=== PATIENT | male | born 1960 | race African-American/Black ===

== ENCOUNTER 2020-06-06 22:04 | Inpatient (IN) | payer OTHER ==
--- NOTE | 2020-06-06 22:19 | ED ---
Medical Clearance HPI - General Chief complaint: Urogenital Stated complaint: PD med clearance Time Seen by Provider: 06/06/20 22:14 Source: patient, police, EMS, RN notes reviewed, old records reviewed Mode of arrival: EMS - History of Present Illness Initial comments: This is a 59-year-old male presenting with PD for medical clearance for intermediate. Patient coming to the ER complaining of abdominal pain significant for swollen scrotum which started today while having a bowel movement. Mild nausea no vomiting patient states he is unable to PE patient denies medical history denies surgical history MD Complaint: medical clearance requested (Medical clearance tonight) -: unknown Reason for Medical Clearance: medical condition (Significant hernia) Place: home Alleged Intoxication: No Compliant with Home Medications: No Traumatic Symptoms: denies traumatic injury Associated Symptoms: other (Abdominal pain) Treatments Prior to Arrival: none Allergies/Adverse reactions: Allergies Allergy/AdvReac Type Severity Reaction Status Date / Time No Known Allergies Allergy Verified 06/06/20 22:30 Review of Systems ROS Statement: Those systems with pertinent positive or pertinent negative responses have been documented in the HPI. ROS Other: All systems not noted in ROS Statement are negative. Past Medical History Past Medical History: No Reported History History of Any Multi-Drug Resistant Organisms: None Reported Past Surgical History: No Surgical Hx Reported Past Psychological History: No Psychological Hx Reported Smoking Status: Former smoker Past Alcohol Use History: None Reported Past Drug Use History: None Reported General Exam - General Exam Comments Initial Comments: Significant hernia in the scrotum, urinary retention Limitations: no limitations General appearance: alert, in no apparent distress Head exam: Present: atraumatic, normocephalic, normal inspection Eye exam: Present: normal appearance, PERRL, EOMI. Absent: scleral icterus, conjunctival injection, periorbital swelling ENT exam: Present: normal exam, mucous membranes moist Neck exam: Present: normal inspection. Absent: tenderness, meningismus, lymphadenopathy Respiratory exam: Present: normal lung sounds bilaterally. Absent: respiratory distress, wheezes, rales, rhonchi, stridor Cardiovascular Exam: Present: regular rate, normal rhythm, normal heart sounds. Absent: systolic murmur, diastolic murmur, rubs, gallop, clicks GI/Abdominal exam: Present: soft, normal bowel sounds. Absent: distended, tenderness, guarding, rebound, rigid Extremities exam: Present: normal inspection, full ROM, normal capillary refill. Absent: tenderness, pedal edema, joint swelling, calf tenderness Back exam: Present: normal inspection Neurological exam: Present: alert, oriented X3, CN II-XII intact Psychiatric exam: Present: normal affect, normal mood Skin exam: Present: warm, dry, intact, normal color. Absent: rash Course Vital Signs 06/06/20 22:14 Temperature 98.5 F Pulse Rate 89 Respiratory 18 Rate Blood Pressure 146/98 O2 Sat by Pulse 98 Oximetry - Reevaluation(s) Reevaluation #1: 06/07/20 00:00 Medical records reviewed 06/07/20 00:00 Patient is not clear for intermediate clearance will need admission Reevaluation #2: 06/07/20 00:00 Patient has catheter placed with greater than 500 mL out Reevaluation #3: 06/07/20 00:36 Patient symptoms are improved Reevaluation #4: 06/07/20 00:36 Spoke patient regarding findings, questions answered - Consultations Consultation #1: Spoke with Agnes Agrees to admit patient Medical Decision Making - Medical Decision Making 59 male DF for evaluation significant urinary retention secondary to inguinal hernia patient be admitted for surgical evaluation and treatment - Lab Data Result diagrams: 06/06/20 23:20 06/06/20 23:20 Lab Results 06/06/20 06/06/20 06/06/20 Range/Units 23:20 23:20 23:20 WBC 6.8 (3.8-10.6) k/uL RBC 4.12 L (4.30-5.90) m/uL Hgb 12.0 L (13.0-17.5) gm/dL Hct 37.6 L (39.0-53.0) % MCV 91.2 (80.0-100.0) fL MCH 29.1 (25.0-35.0) pg MCHC 31.9 (31.0-37.0) g/dL RDW 15.2 (11.5-15.5) % Plt Count 260 (150-450) k/uL Neutrophils % 80 % Lymphocytes % 13 % Monocytes % 3 % Eosinophils % 2 % Basophils % 1 % Neutrophils # 5.4 (1.3-7.7) k/uL Lymphocytes # 0.9 L (1.0-4.8) k/uL Monocytes # 0.2 (0-1.0) k/uL Eosinophils # 0.2 (0-0.7) k/uL Basophils # 0.0 (0-0.2) k/uL PT 9.7 (9.0-12.0) sec INR 0.9 (<1.2) APTT 21.7 L (22.0-30.0) sec Sodium (137-145) mmol/L Potassium (3.5-5.1) mmol/L Chloride (98-107) mmol/L Carbon Dioxide (22-30) mmol/L Anion Gap mmol/L BUN (9-20) mg/dL Creatinine (0.66-1.25) mg/dL Est GFR (CKD-EPI)AfAm (>60 ml/min/1.73 sqM) Est GFR (CKD-EPI)NonAf (>60 ml/min/1.73 sqM) Glucose (74-99) mg/dL Plasma Lactic Acid Carlos (0.7-2.0) mmol/L Calcium (8.4-10.2) mg/dL Phosphorus (2.5-4.5) mg/dL Magnesium (1.6-2.3) mg/dL Total Bilirubin (0.2-1.3) mg/dL AST (17-59) U/L ALT (4-49) U/L Alkaline Phosphatase (38-126) U/L Creatine Kinase (55-170) U/L Total Protein (6.3-8.2) g/dL Albumin (3.5-5.0) g/dL Amylase (30-110) U/L Lipase (23-300) U/L Urine Color Light Yellow Urine Appearance Clear (Clear) Urine pH 7.5 (5.0-8.0) Ur Specific [place] 1.015 (1.001-1.035) Urine Protein Negative (Negative) Urine Glucose (UA) Negative (Negative) Urine Ketones Negative (Negative) Urine Blood Negative (Negative) Urine Nitrite Negative (Negative) Urine Bilirubin Negative (Negative) Urine Urobilinogen <2.0 (<2.0) mg/dL Ur Leukocyte Esterase Negative (Negative) Serum Alcohol mg/dL 06/06/20 06/06/20 Range/Units 23:20 23:20 WBC (3.8-10.6) k/uL RBC (4.30-5.90) m/uL Hgb (13.0-17.5) gm/dL Hct (39.0-53.0) % MCV (80.0-100.0) fL MCH (25.0-35.0) pg MCHC (31.0-37.0) g/dL RDW (11.5-15.5) % Plt Count (150-450) k/uL Neutrophils % % Lymphocytes % % Monocytes % % Eosinophils % % Basophils % % Neutrophils # (1.3-7.7) k/uL Lymphocytes # (1.0-4.8) k/uL Monocytes # (0-1.0) k/uL Eosinophils # (0-0.7) k/uL Basophils # (0-0.2) k/uL PT (9.0-12.0) sec INR (<1.2) APTT (22.0-30.0) sec Sodium 136 L (137-145) mmol/L Potassium 4.4 (3.5-5.1) mmol/L Chloride 108 H (98-107) mmol/L Carbon Dioxide 26 (22-30) mmol/L Anion Gap 2 mmol/L BUN 20 (9-20) mg/dL Creatinine 0.72 (0.66-1.25) mg/dL Est GFR (CKD-EPI)AfAm >90 (>60 ml/min/1.73 sqM) Est GFR (CKD-EPI)NonAf >90 (>60 ml/min/1.73 sqM) Glucose 102 H (74-99) mg/dL Plasma Lactic Acid Carlos 0.8 (0.7-2.0) mmol/L Calcium 9.0 (8.4-10.2) mg/dL Phosphorus 3.5 (2.5-4.5) mg/dL Magnesium 2.2 (1.6-2.3) mg/dL Total Bilirubin 0.2 (0.2-1.3) mg/dL AST 30 (17-59) U/L ALT 24 (4-49) U/L Alkaline Phosphatase 63 (38-126) U/L Creatine Kinase 247 H (55-170) U/L Total Protein 6.5 (6.3-8.2) g/dL Albumin 3.6 (3.5-5.0) g/dL Amylase 56 (30-110) U/L Lipase 163 (23-300) U/L Urine Color Urine Appearance (Clear) Urine pH (5.0-8.0) Ur Specific [place] (1.001-1.035) Urine Protein (Negative) Urine Glucose (UA) (Negative) Urine Ketones (Negative) Urine Blood (Negative) Urine Nitrite (Negative) Urine Bilirubin (Negative) Urine Urobilinogen (<2.0) mg/dL Ur Leukocyte Esterase (Negative) Serum Alcohol <10 mg/dL - Radiology Data Radiology results: report reviewed (CT pelvis show significant hernia), image reviewed Critical Care Time Critical Care Time: Yes Total Critical Care Time: 31 Disposition Clinical Impression: Abdominal pain, Hernia, Urinary retention, Incarcerated inguinal hernia Disposition: ADMITTED IP TO THIS [facility] Condition: Fair Is patient prescribed a controlled substance at d/c from ED?: No
[2020-06-06] MEDS ORDERED: SODIUM CHLORIDE 0.9% 1,000 ML IV STA (23:08)
[2020-06-06 23:49] LABS: Basophils % (A) 1 %; Eosinophils # (A) 0.2 k/uL (0-0.7); Eosinophils % (A) 2 %; HCT 37.6 % (39.0-53.0); Lymphocytes # (A) 0.9 k/uL (1.0-4.8); Lymphocytes % (A) 13 %; MCH 29.1 pg (25.0-35.0); MCHC 31.9 g/dL (31.0-37.0); MCV 91.2 fL (80.0-100.0); Mean Platelet Volume 6.7; Monocytes # (A) 0.2 k/uL (0-1.0); Monocytes % (A) 3 %; Neutrophils # (A) 5.4 k/uL (1.3-7.7); Neutrophils % (A) 80 %; Platelet Count 260 k/uL (150-450); RBC 4.12 m/uL (4.30-5.90); RDW 15.2 % (11.5-15.5); WBC 6.8 k/uL (3.8-10.6)
[2020-06-06 23:50] LABS: Appearance,Urine Clear (Clear); Bilirubin,Urine Negative (Negative); Blood,Urine Negative (Negative); Color,Urine Light Yellow; Glucose,Urine (UA) Negative (Negative); Ketones,Urine Negative (Negative); Leukocyte Esterase,Urine Negative (Negative); Nitrite,Urine Negative (Negative); PH, Urine 7.5 (5.0-8.0); Protein,Urine Negative (Negative); Specific Gravity,Urine 1.015 (1.001-1.035); Urobilinogen,Urine <2.0 mg/dL (<2.0)
[2020-06-07 00:01] LABS: ALT 24 U/L (4-49); AST 30 U/L (17-59); African American GFR (CKD) >90 (>60 ml/min/1.73 sqM); Albumin 3.6 g/dL (3.5-5.0); Alcohol <10 mg/dL; Alkaline Phosphatase 63 U/L (38-126); Amylase 56 U/L (30-110); Anion Gap 2 mmol/L; Blood Urea Nitrogen 20 mg/dL (9-20); Carbon Dioxide 26 mmol/L (22-30); Chloride 108 mmol/L (98-107); Creatine Kinase 247 U/L (55-170); Glucose 102 mg/dL (74-99); Magnesium 2.2 mg/dL (1.6-2.3); Non-African American GFR(CKD) >90 (>60 ml/min/1.73 sqM); Phosphorus 3.5 mg/dL (2.5-4.5); Potassium 4.4 mmol/L (3.5-5.1); Sodium 136 mmol/L (137-145); Total Bilirubin 0.2 mg/dL (0.2-1.3); Total Protein 6.5 g/dL (6.3-8.2)
[2020-06-07 00:08] LABS: INR 0.9 (<1.2); Prothrombin Time 9.7 sec (9.0-12.0)
[2020-06-07 00:10] LABS: Partial Thromboplastin Time 21.7 sec (22.0-30.0)
[2020-06-07] MEDS ORDERED: SODIUM CHLORIDE 0.9% 1,000 ML IV ONE (00:34)
--- NOTE | 2020-06-07 00:54 | CT ---
EXAMINATION TYPE: CT abdomen pelvis w con DATE OF EXAM: 06/07/2020 COMPARISON: None HISTORY: Abd Pain CT DLP: 702.40 mGycm Automated exposure control for dose reduction was used. CONTRAST: Performed with IV Contrast, patient injected with 100 mL of Isovue 300. There is mild subsegmental atelectasis at the lung bases. Heart size is normal. There is no pericardi al effusion. There is no pleural effusion. Liver spleen stomach pancreas gallbladder appear normal. Bile ducts are not dilated. Gallbladder is c ontracted. There is no adrenal mass. Kidneys show satisfactory contrast opacification. There is no hydronephrosi s. There is a 1 cm cortical cyst anterior left kidney. There is no retroperitoneal adenopathy. There is large left side scrotal hernia that contains loops of bowel. There is incarceration. There is Fole y catheter in the urinary bladder. Bladder is empty. There is no ascites. There is no free air. There is no mesenteric edema. There are some mildly distended gas and fluid-filled small bowel loops in the mid abdomen. Small bowel is not d ilated. Small bowel measures up to 2 cm. I do not see evidence for bowel obstruction. The lumbar vertebra have normal alignment. There is narrowing at L5-S1 disc with posterior calcified disc herniation. There is no lumbar compression fracture. The bony pelvis is intact. The hip joints a re intact. IMPRESSION: Incarcerated large left scrotal hernia containing multiple loops of bowel. I do not see evidence for mechanical bowel obstruction.
[2020-06-07] MEDS ORDERED: MORPHINE SULFATE 2 MG/ML SYRINGE IVP PRN (10:25)
[2020-06-07] MEDS ORDERED: ONDANSETRON 4 MG/2 ML VIAL IVP PRN (10:25)
[2020-06-07] MEDS ORDERED: ACETAMINOPHEN TAB 325 MG TAB PO PRN (10:25)
--- NOTE | 2020-06-07 10:32 | P.CONS ---
History of Present Illness - Reason for Consult Consult date: 06/07/20 Medical management - Chief Complaint Lower abdominal pain - History of Present Illness This is a 59-year-old male with no significant past medical history who presented to the emergency room with scrotal pain and swelling. Her ER note patient was brought in by police for medical clearance for usp. There is no office or present in the room. Patient informing he was doing fairly well up until yesterday when he was trying to have a bowel movement and was straining and suddenly he felt a ''pop'' and noted significant swelling in his left groin/scrotal. Patient said the pain as being severe and rated as 10 out of 10. He denies any nausea or vomiting. He denies any history of prior hernia. He was evaluated in the emergency room and currently placed on observation awaiting surgery evaluation. I was asked to see him for medical management. Patient denies any known medical problems. He denies smoking, alcohol, or illicit drug use. He is complaining of a headache and pain in the left groin area. No other complaints otherwise. Review of Systems Review of system: 14 points review of systems were obtained and were negative except to what were mentioned in the HPI. Past Medical History Past Medical History: No Reported History History of Any Multi-Drug Resistant Organisms: None Reported Past Surgical History: No Surgical Hx Reported Past Psychological History: No Psychological Hx Reported Smoking Status: Former smoker Past Alcohol Use History: None Reported Past Drug Use History: None Reported Medications and Allergies Home Medications Medication Instructions Recorded Confirmed Type No Known Home Medications 06/07/20 06/07/20 History Allergies Allergy/AdvReac Type Severity Reaction Status Date / Time No Known Allergies Allergy Verified 06/07/20 09:45 Physical Exam Vitals: Vital Signs Temp Pulse Pulse Resp BP BP Pulse Ox 06/07/20 07:51 98.2 F 89 16 166/102 98 06/07/20 02:10 98.4 F 81 18 157/100 100 06/06/20 22:14 98.5 F 89 18 146/98 98 Intake and Output 06/06/20 06/07/20 06/07/20 22:59 06:59 14:59 Output Total 1600 900 Balance -1600 -900 Output: Urine 1600 900 Other: Voiding Method Toilet Indwelling Catheter Indwelling Catheter Weight 67.132 kg 67.132 kg General: The patient is awake and alert, in no distress Eye: there is normal conjunctiva bilaterally. Neck: The neck is supple, there is no JVD. Cardiovascular: Normal S1-S2, no S3-S4, no murmurs. Respiratory: Lungs clear to auscultation bilaterally Gastrointestinal: Abdomen is soft, nontender Musculoskeletal: There is no pedal edema. Neurological:. Speech is normal. Skin: Skin is warm and dry Genitourinary, there is evidence of nonreducible left inguinal/scrotal hernia with tenderness to palpation. Bills catheter in place. Results CBC & Chem 7: 06/06/20 23:20 06/06/20 23:20 Labs: Abnormal Lab Results - Last 24 Hours (Table) 06/06/20 06/06/20 06/06/20 Range/Units 23:20 23:20 23:20 RBC 4.12 L (4.30-5.90) m/uL Hgb 12.0 L (13.0-17.5) gm/dL Hct 37.6 L (39.0-53.0) % Lymphocytes # 0.9 L (1.0-4.8) k/uL APTT 21.7 L (22.0-30.0) sec Sodium 136 L (137-145) mmol/L Chloride 108 H (98-107) mmol/L Glucose 102 H (74-99) mg/dL Creatine Kinase 247 H (55-170) U/L Assessment and Plan Assessment: 1. Incarcerated left inguinal/scrotal hernia, awaiting general surgery and urology evaluation. Pain controlled with IV morphine as needed. 2. Obstructive uropathy, secondary to above. Bills catheter in place. 3. DVT prophylaxis with subcu heparin 4. Mild headache, Tylenol as needed Thank you very much for the consultation. We will continue to follow up on the patient closely with you.
[2020-06-07] MEDS ORDERED: SUMAtriptan succinate 6 MG/0.5 ML VIAL SQ STA (13:34)
--- NOTE | 2020-06-07 13:34 | P.GSHP ---
History of Present Illness H&P Date: 06/07/20 CHIEF COMPLAINT: Abdominal pain HISTORY OF PRESENT ILLNESS: The patient is a 59 year old male who comes in with pre-existing history of bilateral inguinal hernias. His right inguinal hernia was repaired many years ago. He reports intermittent reduction of his left inguinal hernia in the last 6 months. He comes in after trying to strain to have a bowel movement yesterday then he noticed a bulge along the left groin that was tender. He denies any passage of flatus today. He came in with urinary retention with hematuria. He reports not feeling completely empty as he voids in the past. He drinks coffee daily and reports a headache this morning. He also complains of chest pain. "The pain went from my belly to my chest, now my head really hurts!" No reports of nausea or vomiting. He reports thirst and hunger. He is admitted for urinary retention, hematuria, incarcerated left inguinal hernia, with symptoms of obstruction. PAST MEDICAL HISTORY: See list and reviewed PAST SURGICAL HISTORY: See list and reviewed MEDICATIONS: See list and reviewed ALLERGIES: See list and reviewed SOCIAL HISTORY: See list and reviewed FAMILY HISTORY: See list and reviewed REVIEW OF ORGAN SYSTEMS: CONSTITUTIONAL: No fevers or chills. No recent weight loss. EYES: Denies any trouble with vision. No glasses. HEENT: No difficulties with hearing. No nosebleeds. No difficulty swallowing. RESPIRATORY: Denies pneumonia. Denies any troubles with breathing or dyspnea on exertion. CARDIOVASCULAR: Denies any chest pain, palpitations, or recent heart attacks. GASTROINTESTINAL: Denies fatty food intolerance. Has change in bowel habits and gas bloat. GENITOURINARY: Has blood in urine or increased urinary frequency. NEUROLOGICAL: Denies any numbness or tingling along the distal extremities. No seizure disorders or headaches. MUSCULOSKELETAL: Intermittent back pain, stiffness or joint arthritis. SKIN: No current skin cancer. No rash. PSYCHIATRIC: Denies current depression or suicidal thoughts. ENDOCRINE: Denies current thyroid disorders. Denies any blood sugar glucose intolerance. HEME/LYMPHATIC: Denies any lumps and bumps around the neck. No recent deep venous thrombosis. ALLERGY/IMMUNOLOGY: No immunoglobulin therapy. No immune deficiencies. BREAST: Denies current breast lumps, pain or nipple discharge. PHYSICAL EXAM: VITALS: Reviewed CONSTITUTIONAL: Well developed and in mild distress from his headache EYES: Conjuctivae without sclera icterus. Pupils are equally round and reactive to light. Extraocular movements grossly intact. HEAD, EARS, NOSE, THROAT: Moist buccal mucosa. Head is atraumatic, normocephalic. Hears conversational speech. No nasal drainage. NECK: Supple. No JV distention. No thyroidomegaly. RESPIRATORY: Non-labored respirations and equal bilateral excursions. No gross wheezes. CARDIOVASCULAR: Palpable 2+ radial pulses. ABDOMEN: Soft, tenderness along the left lower quadrant. No peritonitis. Left groin tender. Nondistended. : Gross hematuria with tovar catheter LYMPH: No neck lymphadenopathy. MUSCULOSKELETAL: Nail and fingers with good capillary refill. SKIN: Warm and well perfused with good skin turgor. NEUROLOGIC: Cranial nerves II through XII grossly intact. Sensation upper and extremities intact. No focal or lateralizing signs. PSYCH: Appropriate affect. Alert and oriented to person, place and time. Displays appropriate insight. CLINCAL LABS: Reviewed. Hgb low 12.0, Magnesium 2.2. WBC 6.8 and normal STUDIES: CT of the abdomen and pelvis personally reviewed with small bowel incarcerated in left groin. Bladder wall is thickened on CT. Small fat containing right inguinal hernia. Stool through out colon RADIOLOGY: Report reviewed of CT of the abdomen and pelvis confirms incarcerated small bowel in left inguinal canal into scrotum ASSESSMENT: 1. Clinical small bowel obstruction 2. Incarcerated left inguinal hernia 3. Hematuria with urinary retention 4. Anemia, present on admission 5. History of bilateral inguinal hernia 6. Headache 7. Daily caffeine intake 8. Chest pain 9. Hypertensive heart disease 10. Dehydration PLAN: 1. He reports chest pain. 12-lead EKG obtained including troponin 2. He has gross hematuria including urinary retention. Continue tovar catheter. Flomax started. Urology consultation pending. 3. He has not had recent cardiac work-up. Recommend cardiac risk assessment for surgical intervention 4. IV fluid bolus for dehydration 5. Imitrex for migraine including toradol, tylenol 6. Medicine consultation for hypertension and medical management 7. Inpatient hospitalization more than 2 nights described. 8. Iron panel and ferritin for anemia ADDENDUM: 12-lead EKG with AV block. Will obtain ECHO and cardiology consultation for pending surgical intervention. Past Medical History Past Medical History: No Reported History History of Any Multi-Drug Resistant Organisms: None Reported Past Surgical History: No Surgical Hx Reported Past Psychological History: No Psychological Hx Reported Smoking Status: Former smoker Past Alcohol Use History: None Reported Past Drug Use History: None Reported Medications and Allergies Home Medications Medication Instructions Recorded Confirmed Type No Known Home Medications 06/07/20 06/07/20 History Allergies Allergy/AdvReac Type Severity Reaction Status Date / Time No Known Allergies Allergy Verified 06/07/20 09:45 Surgical - Exam Vital Signs Temp Pulse Resp BP Pulse Ox 98.5 F 89 18 146/98 98 06/06/20 22:14 06/06/20 22:14 06/06/20 22:14 06/06/20 22:14 06/06/20 22:14 Results - Labs 06/06/20 23:20 06/06/20 23:20 Abnormal Lab Results - Last 24 Hours (Table) 06/06/20 06/06/20 06/06/20 Range/Units 23:20 23:20 23:20 RBC 4.12 L (4.30-5.90) m/uL Hgb 12.0 L (13.0-17.5) gm/dL Hct 37.6 L (39.0-53.0) % Lymphocytes # 0.9 L (1.0-4.8) k/uL APTT 21.7 L (22.0-30.0) sec Sodium 136 L (137-145) mmol/L Chloride 108 H (98-107) mmol/L Glucose 102 H (74-99) mg/dL Creatine Kinase 247 H (55-170) U/L Diabetes panel 06/06/20 Range/Units 23:20 Sodium 136 L (137-145) mmol/L Potassium 4.4 (3.5-5.1) mmol/L Chloride 108 H (98-107) mmol/L Carbon Dioxide 26 (22-30) mmol/L BUN 20 (9-20) mg/dL Creatinine 0.72 (0.66-1.25) mg/dL Glucose 102 H (74-99) mg/dL Calcium 9.0 (8.4-10.2) mg/dL AST 30 (17-59) U/L ALT 24 (4-49) U/L Alkaline Phosphatase 63 (38-126) U/L Total Protein 6.5 (6.3-8.2) g/dL Albumin 3.6 (3.5-5.0) g/dL Calcium panel 06/06/20 Range/Units 23:20 Calcium 9.0 (8.4-10.2) mg/dL Phosphorus 3.5 (2.5-4.5) mg/dL Albumin 3.6 (3.5-5.0) g/dL Pituitary panel 06/06/20 Range/Units 23:20 Sodium 136 L (137-145) mmol/L Potassium 4.4 (3.5-5.1) mmol/L Chloride 108 H (98-107) mmol/L Carbon Dioxide 26 (22-30) mmol/L BUN 20 (9-20) mg/dL Creatinine 0.72 (0.66-1.25) mg/dL Glucose 102 H (74-99) mg/dL Calcium 9.0 (8.4-10.2) mg/dL Adrenal panel 06/06/20 Range/Units 23:20 Sodium 136 L (137-145) mmol/L Potassium 4.4 (3.5-5.1) mmol/L Chloride 108 H (98-107) mmol/L Carbon Dioxide 26 (22-30) mmol/L BUN 20 (9-20) mg/dL Creatinine 0.72 (0.66-1.25) mg/dL Glucose 102 H (74-99) mg/dL Calcium 9.0 (8.4-10.2) mg/dL Total Bilirubin 0.2 (0.2-1.3) mg/dL AST 30 (17-59) U/L ALT 24 (4-49) U/L Alkaline Phosphatase 63 (38-126) U/L Total Protein 6.5 (6.3-8.2) g/dL Albumin 3.6 (3.5-5.0) g/dL Assessment and Plan (1) Hematuria Current Visit: Yes Status: Acute Code(s): R31.9 - HEMATURIA, UNSPECIFIED SNOMED Code(s): 26999634 (2) Hypertensive heart disease Current Visit: Yes Status: Acute Code(s): I11.9 - HYPERTENSIVE HEART DISEASE WITHOUT HEART FAILURE SNOMED Code(s): 88444562 (3) AV block, 1st degree Current Visit: Yes Status: Acute Code(s): I44.0 - ATRIOVENTRICULAR BLOCK, FIRST DEGREE SNOMED Code(s): 816744979 (4) Incarcerated inguinal hernia Current Visit: Yes Status: Acute Code(s): K40.30 - UNIL INGUINAL HERNIA, W OBST, W/O GANGR, NOT SPCF RECUR SNOMED Code(s): 477640511
[2020-06-07] MEDS ORDERED: SODIUM CHLORIDE 0.9% 2,000 ML IV ONE (13:35)
[2020-06-07] MEDS ORDERED: TAMSULOSIN 0.4 MG CAP.ER.24H PO STA (13:36)
[2020-06-07] MEDS ORDERED: HYDROmorphone 1 MG/ML 1 ML SYRINGE IVP PRN (13:44)
[2020-06-07] MEDS: SODIUM CHLORIDE 0.9% 1,000 ML IV SCH (13:48)
[2020-06-07] MEDS: KETOROLAC 15 MG/ML 1 ML VIAL IVP SCH ×3 (13:48→23:16)
[2020-06-07] MEDS ORDERED: BUTALB/APAP/CAFF 50-325-40MG TAB PO STA (13:55)
[2020-06-07] MEDS ORDERED: MAGNESIUM SULFATE-D5W PMX 1 GM in DEXTROSE/WATER 1 100ML.BAG IVPB SCH (14:00)
[2020-06-07] MEDS: HEPARIN SODIUM,PORCINE 5,000 UNIT/ML 1 ML VIAL SQ SCH (20:28)
[2020-06-07 23:00] LABS: Ferritin 58.3 ng/mL (22.0-322.0)
[2020-06-07 23:02] LABS: % Iron Saturation 10.1 (15.00-50.00)
[2020-06-08] MEDS: SODIUM CHLORIDE 0.9% 1,000 ML IV SCH ×2 (03:40→17:52)
[2020-06-08] MEDS: KETOROLAC 15 MG/ML 1 ML VIAL IVP SCH ×3 (05:44→17:52)
[2020-06-08] MEDS: HEPARIN SODIUM,PORCINE 5,000 UNIT/ML 1 ML VIAL SQ SCH ×2 (08:40→22:16)
[2020-06-08 11:25] LABS: Basophils % (A) 0 %; Eosinophils # (A) 0.1 k/uL (0-0.7); Eosinophils % (A) 2 %; HCT 39.2 % (39.0-53.0); HGB 12.4 gm/dL (13.0-17.5); Lymphocytes # (A) 1.1 k/uL (1.0-4.8); Lymphocytes % (A) 20 %; MCH 28.7 pg (25.0-35.0); MCHC 31.6 g/dL (31.0-37.0); MCV 90.7 fL (80.0-100.0); Mean Platelet Volume 6.7; Monocytes # (A) 0.3 k/uL (0-1.0); Monocytes % (A) 6 %; Neutrophils # (A) 3.7 k/uL (1.3-7.7); Neutrophils % (A) 69 %; Platelet Count 276 k/uL (150-450); RBC 4.32 m/uL (4.30-5.90); WBC 5.4 k/uL (3.8-10.6)
[2020-06-08 11:33] LABS: African American GFR (CKD) >90 (>60 ml/min/1.73 sqM); Anion Gap 3 mmol/L; Blood Urea Nitrogen 15 mg/dL (9-20); Calcium 8.9 mg/dL (8.4-10.2); Carbon Dioxide 28 mmol/L (22-30); Chloride 107 mmol/L (98-107); Cholesterol 213 mg/dL (<200); Glucose 92 mg/dL (74-99); HDL Cholesterol 55 mg/dL (40-60); LDL Cholesterol,Calculated 131 mg/dL (0-99); Non-African American GFR(CKD) >90 (>60 ml/min/1.73 sqM); Potassium 4.4 mmol/L (3.5-5.1); Sodium 138 mmol/L (137-145); Triglycerides 134 mg/dL (<150)
--- NOTE | 2020-06-08 11:38 | P.GSCN ---
History of Present Illness Consult date: 06/08/20 Reason for Consult: Urinary retention, gross hematuria Requesting physician: Katerina Alarcon History of present illness: The patient is a 59-year-old white male -[place] male with an unremarkable urologic history. However, for the past month he has experienced urinary hesitancy, frequency, painful micturition, and diminished urinary stream. He denies incontinence and gross hematuria. He presented with scrotal swelling, and was found to have an incarcerated left inguinal hernia. He is scheduled to undergo surgery tomorrow for this. A Bills catheter was placed, and the patient experienced relief as his bladder was decompressed. He subsequently developed gross hematuria, which has resolved. The Bills catheter is currently draining clear yellow urine. Review of Systems - Genitourinary Reports dysuria, Reports urinary frequency, Reports urinary hesitancy, Reports urinary retention Past Medical History Past Medical History: No Reported History History of Any Multi-Drug Resistant Organisms: None Reported Past Surgical History: No Surgical Hx Reported Past Psychological History: No Psychological Hx Reported Smoking Status: Former smoker Past Alcohol Use History: None Reported Past Drug Use History: None Reported Medications and Allergies Home Medications Medication Instructions Recorded Confirmed Type No Known Home Medications 06/07/20 06/07/20 History Allergies Allergy/AdvReac Type Severity Reaction Status Date / Time No Known Allergies Allergy Verified 06/07/20 09:45 Surgical - Exam Vital Signs Temp Pulse Resp BP Pulse Ox 98.5 F 89 18 146/98 98 06/06/20 22:14 06/06/20 22:14 06/06/20 22:14 06/06/20 22:14 06/06/20 22:14 - General well developed, well nourished, no distress - Respiratory normal respiratory effort - Abdomen Abdomen: soft, non tender, no guarding, no rigid, no rebound - Genitourinary normal penis with no external lesions, testicles non-tender - Rectum Rectum: normal sphincter tone, no masses, other (Prostate 40+ grams, smooth) - Psychiatric oriented to time, oriented to person, oriented to place, speech is normal, memory intact Results - Labs 06/08/20 11:09 06/06/20 23:20 Abnormal Lab Results - Last 24 Hours (Table) 06/07/20 Range/Units 13:46 Iron 29 L (65-175) ug/dL % Saturation 10.10 L (15.00-50.00) - Imaging CT scan - abdomen: report reviewed, image reviewed Assessment and Plan (1) Urinary retention Current Visit: Yes Status: Acute Code(s): R33.9 - RETENTION OF URINE, UNSPECIFIED SNOMED Code(s): 989227466 (2) Gross hematuria Current Visit: Yes Status: Acute Code(s): R31.0 - GROSS HEMATURIA SNOMED Code(s): 928401850 Plan: The patient likely developed urinary retention secondary to BPH. Urinalysis obtained at the time of admission showed no evidence of gross hematuria. It is likely that the hematuria resulted from catheter insertion with decompression of the patient's urinary retention, which by history may have been long-standing. I have reviewed the computed tomography scan, which reveals a 1 cm left renal cyst. The kidneys otherwise appear normal. The Bills catheter is in place, and thus evaluation of the bladder is extremely limited. It is impossible to determine whether or not the bladder is involved in the patient's incarcerated hernia. I would suggest the Bills catheter remain in place, and that the patient continue to receive tamsulosin. Dr. Alarcon will obviously reduce the hernia prior to repairing it, and at that time it can be determined whether or not the bladder is involved. Postoperatively, the Bills catheter can be removed for a voiding trial. Postvoid residuals should be checked to assess bladder emptying. If the retention persists, he should be discharged with a Bills catheter and f ollow-up with me as an outpatient for urodynamic testing. I also explained to him that he needs to follow up with me upon discharge to undergo office flexible cystoscopy to rule out intravesical pathology, in view of the hematuria. Time with Patient: Greater than 30
[2020-06-08] MEDS: lisinopriL 10 MG TAB PO SCH (12:00)
[2020-06-08] MEDS: SODIUM FERRIC GLUCONAT-SUCROSE 125 MG in SODIUM CHLORIDE 0.9% 100 ML IVPB SCH (12:01)
--- NOTE | 2020-06-08 12:21 | P.CRDCN ---
History of Present Illness History of present illness: HISTORY OF PRESENTING ILLNESS This is a pleasant 59-year-old -[place] male past medical history significant for former nicotine dependence. He also has significant family history of premature coronary artery disease in his mother, father, sister and both brothers. He does not follow regularly with a operating table assembler for any reason. We have been asked to see in consultation for preoperative evaluation. He presented to the hospital with a bulging sensation in the left groin and was found to have an incarcerated scrotal hernia. He is scheduled to undergo surgical intervention with Dr. Alarcon tomorrow. He had an episode of chest discomfort yesterday described as a tightening sensation in the midsternal region with radiation to the base of his throat. He denies associated shortness of breath, dizziness, palpitations, nausea, vomiting or diaphoresis. The symptoms lasted less than 5 minutes and subsided on their own. DIAGNOSTICS EKG reveals sinus mechanism with first-degree AV block. Laboratory reviewed, WBC 5.4, hemoglobin 12.4, platelets 276, sodium 136, potassium 4.4, creatinine 0.17, cardiac enzymes negative 2. He takes no daily medications. REVIEW OF SYSTEMS At the time of my exam: CONSTITUTIONAL: Denies fever or chills. CARDIOVASCULAR: Denies chest pain, shortness of breath, orthopnea, PND or palpitations. RESPIRATORY: Denies cough. GASTROINTESTINAL: Denies abdominal pain, diarrhea, constipation, nausea or vomiting. MUSCULOSKELETAL: Denies myalgias. NEUROLOGIC: Denies numbness, tingling or weakness. ENDOCRINE: Denies fatigue, weight change, polydipsia or polyurina. GENITOURINARY: Denies burning, hematuria or urgency with micturation. HEMATOLOGIC: Denies history of anemia or bleeding. PHYSICAL EXAMINATION Blood pressure 146/96 heart rate 85 afebrile and maintaining oxygen saturation on room air. CONSTITUTIONAL: No apparent distress. HEENT: Head is normocephalic. Pupils are equal, round. Sclerae anicteric. Mucous membranes of the mouth are moist. No JVD. No carotid bruit. CHEST EXAMINATION: Lungs are clear to auscultation. No chest wall tenderness is noted on palpation or with deep breathing. HEART EXAMINATION: Regular rate and rhythm. S1, S2 heard. No murmurs, gallops or rub. ABDOMEN: Soft, nontender. Positive bowel sounds. EXTREMITIES: 2+ peripheral pulses, no lower extremity edema and no calf tenderness. NEUROLOGIC EXAMINATION: Patient is awake, alert and oriented x3. ASSESSMENT Chest pain, atypical for angina. An acute coronary event has been ruled out. Incarcerated scrotal hernia Hypertension, new onset Family history of premature coronary artery disease PLAN An acute coronary event has been ruled out. Echocardiogram has been obtained and will be reviewed. Initiate lisinopril 10 mg daily for blood pressure control. Recommend proceeding with dobutamine stress echocardiogram tomorrow morning prior to undergoing surgical intervention. Thank you kindly for this consultation. Nurse Practitioner note has been reviewed, I agree with a documented findings and plan of care. Patient was seen and examined. Past Medical History Past Medical History: No Reported History History of Any Multi-Drug Resistant Organisms: None Reported Past Surgical History: No Surgical Hx Reported Past Psychological History: No Psychological Hx Reported Smoking Status: Former smoker Past Alcohol Use History: None Reported Past Drug Use History: None Reported Medications and Allergies Home Medications Medication Instructions Recorded Confirmed Type No Known Home Medications 06/07/20 06/07/20 History Allergies Allergy/AdvReac Type Severity Reaction Status Date / Time No Known Allergies Allergy Verified 06/07/20 09:45 Physical Exam Vitals: Vital Signs Temp Pulse Resp BP Pulse Ox 06/08/20 08:36 97.9 F 85 16 146/96 96 06/08/20 03:11 98 F 81 12 146/94 100 06/07/20 20:46 98.4 F 71 16 144/91 99 06/07/20 14:38 16 06/07/20 14:25 98.1 F 79 16 157/101 Intake and Output 06/07/20 06/08/20 06/08/20 22:59 06:59 14:59 Output Total 1400 2500 Balance -1400 -2500 Output: Urine 1400 2500 Other: Voiding Method Indwelling Catheter Indwelling Catheter Indwelling Catheter Results 06/08/20 11:09 06/06/20 23:20 Cardiac Enzymes 06/07/20 06/08/20 Range/Units 13:46 11:09 Troponin I <0.012 <0.012 (0.000-0.034) ng/mL CBC 06/08/20 Range/Units 11:09 WBC 5.4 (3.8-10.6) k/uL RBC 4.32 (4.30-5.90) m/uL Hgb 12.4 L (13.0-17.5) gm/dL Hct 39.2 (39.0-53.0) % Plt Count 276 (150-450) k/uL Current Medications Generic Name Dose Route Start Last Admin Trade Name Freq PRN Reason Stop Dose Admin Acetaminophen 1,000 mg 06/07/20 13:40 Tylenol Tab PO Q6HR PRN Fever and/ or Mild Pain Heparin Sodium (Porcine) 5,000 unit 06/07/20 21:00 06/08/20 08:40 Heparin SQ 5,000 unit Q12HR JONATHAN Administration Hydromorphone HCl 1 mg 06/07/20 13:44 Dilaudid IVP Q3HR PRN Moderate to Severe Pain Sodium Chloride 1,000 mls @ 75 mls/hr 06/07/20 13:45 06/08/20 03:40 Saline 0.9% IV 75 mls/hr .[id number] JONATHAN Administration Dobutamine HCl/Dextrose 500 mg 250 mls @ 20.14 mls/hr 06/09/20 07:00 / IV Solution IV 06/09/20 19:24 .[id number] ONE Protocol 10 MCG/KG/MIN Ferric Sodium Gluconate 125 mg 110 mls @ 100 mls/hr 06/08/20 12:00 06/08/20 12:01 / Sodium Chloride IVPB 06/10/20 13:05 100 mls/hr Q24H JONATHAN Administration Ketorolac Tromethamine 15 mg 06/07/20 13:45 06/08/20 12:01 Toradol IVP 06/10/20 13:35 15 mg Q6HR JONATHAN Administration Lisinopril 10 mg 06/08/20 11:00 06/08/20 12:00 Zestril PO 10 mg DAILY JONATHAN Administration Tamsulosin HCl 0.4 mg 06/08/20 18:30 Flomax PO PC-SUPPER JONATHAN Intake and Output 06/07/20 06/08/20 06/08/20 22:59 06:59 14:59 Output Total 1400 2500 Balance -1400 -2500 Output: Urine 1400 2500 Other: Voiding Method Indwelling Catheter Indwelling Catheter Indwelling Catheter 06/08/20 11:09 06/06/20 23:20
--- NOTE | 2020-06-08 12:25 | P.PN ---
Subjective Progress Note Date: 06/08/20 CHIEF COMPLAINT: Abdominal pain with incarcerated small bowel containing inguinal hernia HISTORY OF PRESENT ILLNESS: The patient is a 59 year old male who comes in with urinary retention, hematuria, incarcerated left inguinal hernia, with symptoms of obstruction. Patient reports some improvement of abdominal pain and headache. He still has incarcerated left inguinal hernia. He was seen by urology for hematuria and found to have enlarged prostate. No reports of vomiting. His headache is improved. He is undergoing cardiac work-up for abnormal EKG and chest pain. REVIEW OF ORGAN SYSTEMS: No fevers or chills. Recent chest pain resolved. No productive sputum PHYSICAL EXAM: VITALS: Reviewed CONSTITUTIONAL: Well developed and in no acute distress EYES: Conjuctivae without sclera icterus. Extraocular movements grossly intact. HEAD, EARS, NOSE, THROAT: Moist buccal mucosa. Head is atraumatic, normocephalic. Hears conversational speech. No nasal drainage. RESPIRATORY: Non-labored respirations and equal bilateral excursions. CARDIOVASCULAR: Palpable 2+ radial pulses. ABDOMEN: No diffuse peritonitis. Incarcerated left inguinal hernia. : Urine clear in tovar bag MUSCULOSKELETAL: Nail and fingers with good capillary refill. SKIN: Warm and well perfused with good skin turgor. NEUROLOGIC: Cranial nerves II through XII grossly intact. Sensation upper and extremities intact. No focal or lateralizing signs. PSYCH: Appropriate affect. Alert and oriented to person, place and time. Displays appropriate insight. CLINCAL LABS: Reviewed. Hgb low 12.0 now 12. 4. WBC 6.8 now 5.4 and normal. Iron panel low. Troponin negative ASSESSMENT: 1. Clinical small bowel obstruction 2. Incarcerated left inguinal hernia 3. Hematuria with urinary retention 4. Anemia, present on admission 5. History of bilateral inguinal hernia 6. Headache 7. Daily caffeine intake 8. Chest pain 9. Hypertensive heart disease 10. Dehydration 11. Iron deficiency anemia, present on admission 12. Enlarged prostate PLAN: 1. With his acute incarcerated hernia, left inguinal hernia repair described 2. He is pending completion of his cardiac risk assessment 3. Placement of mesh was described to prevent recurrence, however may be deferred in inflammatory or infected field. 4. Per review of urology recommendations, discharge home with tovar catheter also described. 5. Inpatient hospitalization over 2 nights continued Objective - Vital Signs Vital signs: Vital Signs Temp 97.9 F 06/08/20 08:36 Pulse 85 06/08/20 08:36 Resp 16 06/08/20 08:36 BP 146/96 06/08/20 08:36 Pulse Ox 96 06/08/20 08:36 Intake & Output 06/07/20 06/08/20 06/08/20 18:59 06:59 18:59 Output Total 2300 2500 Balance -2300 -2500 Output: Urine 2300 2500 Other: Voiding Method Indwelling Catheter Indwelling Catheter Indwelling Catheter - Labs CBC & Chem 7: 06/08/20 11:09 06/08/20 11:09 Labs: Abnormal Lab Results - Last 24 Hours (Table) 06/07/20 06/08/20 Range/Units 13:46 11:09 Hgb 12.4 L (13.0-17.5) gm/dL Iron 29 L (65-175) ug/dL % Saturation 10.10 L (15.00-50.00) Assessment and Plan (1) Hematuria Current Visit: Yes Status: Acute Code(s): R31.9 - HEMATURIA, UNSPECIFIED SNOMED Code(s): 16189912 (2) Hypertensive heart disease Current Visit: Yes Status: Acute Code(s): I11.9 - HYPERTENSIVE HEART DISEASE WITHOUT HEART FAILURE SNOMED Code(s): 87873587 (3) AV block, 1st degree Current Visit: Yes Status: Acute Code(s): I44.0 - ATRIOVENTRICULAR BLOCK, FIRST DEGREE SNOMED Code(s): 797973278 (4) Incarcerated inguinal hernia Current Visit: Yes Status: Acute Code(s): K40.30 - UNIL INGUINAL HERNIA, W OBST, W/O GANGR, NOT SPCF RECUR SNOMED Code(s): 048211003 (5) Enlarged prostate with lower urinary tract symptoms (LUTS) Current Visit: Yes Status: Acute Code(s): N40.1 - BENIGN PROSTATIC HYPERP LASIA WITH LOWER URINARY TRACT SYMP SNOMED Code(s): 002823970 (6) Iron deficiency anemia Current Visit: Yes Status: Acute Code(s): D50.9 - IRON DEFICIENCY ANEMIA, UNSPECIFIED SNOMED Code(s): 90922708 (7) Small bowel obstruction Current Visit: Yes Status: Acute Code(s): K56.609 - UNSP INTESTNL OBST, UNSP TO PARTIAL VERSUS COMPLETE OBST SNOMED Code(s): 916480276
--- NOTE | 2020-06-08 13:44 | P.PN ---
Subjective Progress Note Date: 06/08/20 Patient is doing fairly well today. No acute events overnight. Objective - Vital Signs Vital signs: Vital Signs Temp 97.9 F 06/08/20 08:36 Pulse 85 06/08/20 08:36 Resp 16 06/08/20 08:36 BP 146/96 06/08/20 08:36 Pulse Ox 96 06/08/20 08:36 Intake & Output 06/07/20 06/08/20 06/08/20 18:59 06:59 18:59 Output Total 2300 2500 Balance -2300 -2500 Output: Urine 2300 2500 Other: Voiding Method Indwelling Catheter Indwelling Catheter Indwelling Catheter - Exam General: The patient is awake and alert, in no distress Eye: there is normal conjunctiva bilaterally. Neck: The neck is supple, there is no JVD. Cardiovascular: Normal S1-S2, no S3-S4, no murmurs. Respiratory: Lungs clear to auscultation bilaterally Gastrointestinal: Abdomen is soft, nontender Musculoskeletal: There is no pedal edema. Neurological:. Speech is normal. Skin: Skin is warm and dry - Labs CBC & Chem 7: 06/08/20 11:09 06/06/20 23:20 Labs: Abnormal Lab Results - Last 24 Hours (Table) 06/07/20 06/08/20 Range/Units 13:46 11:09 Hgb 12.4 L (13.0-17.5) gm/dL Iron 29 L (65-175) ug/dL % Saturation 10.10 L (15.00-50.00) Assessment and Plan Assessment: 1. Incarcerated left inguinal/scrotal hernia, plan for all are as per surgery recommendation. Pain controlled with IV morphine as needed. 2. Obstructive uropathy, Bills catheter in place. Seen and evaluated by urology, started on Flomax daily. 3. DVT prophylaxis with subcu heparin 4. Mild headache, Tylenol as needed Patient was seen and evaluated by cardiology for preoperative clearance. Ordered stress test for the morning. We will continue to follow up with you closely.
--- NOTE | 2020-06-08 16:00 | ECHOF ---
Referral Reason:Chest pain MEASUREMENTS -------- HEIGHT: 170.2 cm WEIGHT: 67.1 kg BP: RVIDd: 3.2 cm (< 3.3) IVSd: 1.0 cm (0.6 - 1.1) LVIDd: 4.3 cm (3.9 - 5.3) LVPWd: 1.0 cm (0.6 - 1.1) IVSs: 1.3 cm LVIDs: 3.2 cm LVPWs: 1.3 cm LA Diam: 4.2 cm (2.7 - 3.8) LAESV Index (A-L): 29.77 ml/m Ao Diam: 3.1 cm (2.0 - 3.7) AV Cusp: 2.0 cm (1.5 - 2.6) MV EXCURSION: 13.883 mm (> 18.000) MV EF SLOPE: 83 mm/s (70 - 150) EPSS: 0.5 cm MV E Bradley: 0.52 m/s MV DecT: 264 ms MV A Bradley: 0.71 m/s MV E/A Ratio: 0.73 RAP: 5.00 mmHg RVSP: 19.48 mmHg FINDINGS -------- Sinus rhythm. This was a technically good study. LV size, wall thickness and systolic function are normal, with an EF greater than 55%. The left hernesto tricular size is normal. The right ventricle is normal in size. The left atrium is mildly dilated. LA is midly dilated 29-33ml/m2. The right atrial size is normal. The aortic valve is trileaflet, and appears structurally normal. No aortic stenosis or regurgitation. Mild mitral regurgitation is present. Mild tricuspid regurgitation present. Right ventricular systolic pressure is normal at < 35 mmHg. There is no pulmonic regurgitation present. The aortic root size is normal. There is no pericardial effusion. CONCLUSIONS -------- 1. LV size, wall thickness and systolic function are normal, with an EF greater than 55%. 2. The right ventricle is normal in size. 3. The left atrium is mildly dilated. 4. LA is midly dilated 29-33ml/m2. 5. The right atrial size is normal. 6. Mild mitral regurgitation is present. 7. Mild tricuspid regurgitation present. [employer]: Tracy Aldridge RDCS
[2020-06-08] MEDS: TAMSULOSIN 0.4 MG CAP.ER.24H PO SCH (17:52)
[2020-06-09] MEDS: KETOROLAC 15 MG/ML 1 ML VIAL IVP SCH ×5 (00:45→23:52)
[2020-06-09] MEDS: SODIUM CHLORIDE 0.9% 1,000 ML IV SCH ×2 (06:07→20:01)
[2020-06-09 06:52] LABS: African American GFR (CKD) >90 (>60 ml/min/1.73 sqM); Anion Gap 4 mmol/L; Blood Urea Nitrogen 14 mg/dL (9-20); Calcium 9.2 mg/dL (8.4-10.2); Carbon Dioxide 28 mmol/L (22-30); Chloride 106 mmol/L (98-107); Glucose 101 mg/dL (74-99); Non-African American GFR(CKD) >90 (>60 ml/min/1.73 sqM); Potassium 4.9 mmol/L (3.5-5.1); Sodium 138 mmol/L (137-145)
[2020-06-09 06:53] LABS: Basophils % (A) 1 %; Eosinophils # (A) 0.1 k/uL (0-0.7); Eosinophils % (A) 3 %; HCT 42.3 % (39.0-53.0); HGB 13.3 gm/dL (13.0-17.5); Lymphocytes # (A) 0.9 k/uL (1.0-4.8); Lymphocytes % (A) 22 %; MCH 28.5 pg (25.0-35.0); MCHC 31.4 g/dL (31.0-37.0); Mean Platelet Volume 6.5; Monocytes # (A) 0.2 k/uL (0-1.0); Monocytes % (A) 6 %; Neutrophils # (A) 2.5 k/uL (1.3-7.7); Neutrophils % (A) 65 %; Platelet Count 273 k/uL (150-450); RBC 4.64 m/uL (4.30-5.90); RDW 15.1 % (11.5-15.5); WBC 3.8 k/uL (3.8-10.6)
[2020-06-09] MEDS ORDERED: DOBUTamine DRIP for NUC MED 500 MG in DEXTROSE/WATER 1 250ML.BAG IV ONE (07:00)
[2020-06-09] MEDS: lisinopriL 10 MG TAB PO SCH (08:44)
[2020-06-09] MEDS: HEPARIN SODIUM,PORCINE 5,000 UNIT/ML 1 ML VIAL SQ SCH ×2 (08:44→20:00)
[2020-06-09] MEDS ORDERED: PHENYLEPHRINE 0.25% NASAL SPRA 1 SPRAY/ML NASAL PRN (09:10)
--- NOTE | 2020-06-09 10:24 | P.PN ---
Subjective Progress Note Date: 06/09/20 CHIEF COMPLAINT: Abdominal pain with incarcerated small bowel containing inguinal hernia HISTORY OF PRESENT ILLNESS: The patient is a 59 year old male who presented with urinary retention including incarcerated left inguinal hernia. Upon presentation, he complained of chest pain. His chest pain has improved. Cardiology workup still pending. He has no new complaints at this time. Tovar catheter present for urinary retention. Patient seen by urology. REVIEW OF ORGAN SYSTEMS: No fevers or chills. Recent chest pain resolved. No productive sputum PHYSICAL EXAM: VITALS: Reviewed CONSTITUTIONAL: Well developed and in no acute distress EYES: Conjuctivae without sclera icterus. Extraocular movements grossly intact. HEAD, EARS, NOSE, THROAT: Moist buccal mucosa. Head is atraumatic, normoc ephalic. Hears conversational speech. No nasal drainage. RESPIRATORY: Non-labored respirations and equal bilateral excursions. CARDIOVASCULAR: Palpable 2+ radial pulses. ABDOMEN: Incarcerated left inguinal hernia without skin changes. Mild tenderness of the groin. : Urine clear in tovar bag MUSCULOSKELETAL: Nail and fingers with good capillary refill. SKIN: Warm and well perfused with good skin turgor. NEUROLOGIC: Cranial nerves II through XII grossly intact. Sensation upper and extremities intact. No focal or lateralizing signs. PSYCH: Appropriate affect. Alert and oriented to person, place and time. Displays appropriate insight. CLINCAL LABS: Reviewed. WBC normal. Iron deficiency anemia. ASSESSMENT: 1. Clinical small bowel obstruction 2. Incarcerated left inguinal hernia 3. Hematuria with urinary retention 4. Anemia, present on admission 5. History of bilateral inguinal hernia 6. Headache 7. Daily caffeine intake 8. Chest pain 9. Hypertensive heart disease 10. Dehydration 11. Iron deficiency anemia, present on admission 12. Enlarged prostate PLAN: 1. Awaiting cardiology clearance prior to robotic left inguinal hernia repair. Benefits and risks described including placement of mesh 2. Will continue with Tovar perioperatively due to pre-existing urinary retenti on 3. Iron infusions for eye deficiency anemia Objective - Vital Signs Vital signs: Vital Signs Temp 98.3 F 06/09/20 03:00 Pulse 73 06/09/20 03:00 Resp 14 06/09/20 03:00 BP 154/99 06/09/20 03:00 Pulse Ox 97 06/09/20 03:00 Intake & Output 06/08/20 06/09/2020 18:59 06:59 18:59 Output Total 2099 1700 Balance -2099 -1699 Output: Urine 2099 1700 Other: Voiding Method Indwelling Catheter Indwelling Catheter - Labs CBC & Chem 7: 06/11/20 05:33 06/11/20 05:33 Labs: Abnormal Lab Results - Last 24 Hours (Table) 06/08/20 06/08/20 06/09/20 Range/Units 11:09 11:09 06:10 Hgb 12.4 L (13.0-17.5) gm/dL Lymphocytes # 0.9 L (1.0-4.8) k/uL Glucose (74-99) mg/dL Cholesterol 213 H (<200) mg/dL LDL Cholesterol, Calc 131 H (0-99) mg/dL 06/09/20 Range/Units 06:10 Hgb (13.0-17.5) gm/dL Lymphocytes # (1.0-4.8) k/uL Glucose 101 H (74-99) mg/dL Cholesterol (<200) mg/dL LDL Cholesterol, Calc (0-99) mg/dL Assessment and Plan (1) Hematuria Status: Acute Code(s): R31.9 - HEMATURIA, UNSPECIFIED SNOMED Code(s): 99373407 (2) Hypertensive heart disease Status: Acute Code(s): I11.9 - HYPERTENSIVE HEART DISEASE WITHOUT HEART FAILURE SNOMED Code(s): 74423374 (3) AV block, 1st degree Status: Acute Code(s): I44.0 - ATRIOVENTRICULAR BLOCK, FIRST DEGREE SNOMED Code(s): 296879610 (4) Incarcerated inguinal hernia Status: Acute Code(s): K40.30 - UNIL INGUINAL HERNIA, W OBST, W/O GANGR, NOT SPCF RECUR SNOMED Code(s): 045535538 (5) Enlarged prostate with lower urinary tract symptoms (LUTS) Status: Acute Code(s): N40.1 - BENIGN PROSTATIC HYPERPLASIA WITH LOWER URINARY TRACT SYMP SNOMED Code(s): 750366394 (6) Iron deficiency anemia Status: Acute Code(s): D50.9 - IRON DEFICIENCY ANEMIA, UNSPECIFIED SNOMED Code(s): 45914096 (7) Small bowel obstruction Status: Acute Code(s): K56.609 - UNSP INTESTNL OBST, UNSP TO PARTIAL VERSUS COMPLETE OBST SNOMED Code(s): 273176221
--- NOTE | 2020-06-09 10:39 | P.PN ---
Subjective Progress Note Date: 06/09/20 Patient is still complaining of headache and sinus congestion today. He did not want to use Tylenol earlier. He informed me that he uses Tylenol Sinus at home. Objective - Vital Signs Vital signs: Vital Signs Temp 98.7 F 06/09/20 09:00 Pulse 89 06/09/20 09:00 Resp 12 06/09/20 09:00 BP 140/90 06/09/20 09:00 Pulse Ox 92 L 06/09/20 09:00 Intake & Output 06/08/20 06/09/20 06/09/20 18:59 06:59 18:59 Intake Total 150 Output Total 2099 1700 Balance -2099 -1699 150 Intake: Intake, IV Titration 150 Amount Sodium Chloride 0.9% 1, 150 000 ml @ 75 mls/hr IV . [id number] [facility] Rx#:[id number] Output: Urine 2099 1700 Other: Voiding Method Indwelling Catheter Indwelling Catheter - Exam General: The patient is awake and alert, in no distress Eye: there is normal conjunctiva bilaterally. Neck: The neck is supple, there is no JVD. Cardiovascular: Normal S1-S2, no S3-S4, no murmurs. Respiratory: Lungs clear to auscultation bilaterally Gastrointestinal: Abdomen is soft, nontender Musculoskeletal: There is no pedal edema. Neurological:. Speech is normal. Skin: Skin is warm and dry - Labs CBC & Chem 7: 06/09/20 06:10 06/09/20 06:10 Labs: Abnormal Lab Results - Last 24 Hours (Table) 06/08/20 06/08/20 06/09/20 Range/Units 11:09 11:09 06:10 Hgb 12.4 L (13.0-17.5) gm/dL Lymphocytes # 0.9 L (1.0-4.8) k/uL Glucose (74-99) mg/dL Cholesterol 213 H (<200) mg/dL LDL Cholesterol, Calc 131 H (0-99) mg/dL 06/09/20 Range/Units 06:10 Hgb (13.0-17.5) gm/dL Lymphocytes # (1.0-4.8) k/uL Glucose 101 H (74-99) mg/dL Cholesterol (<200) mg/dL LDL Cholesterol, Calc (0-99) mg/dL Assessment and Plan Assessment: 1. Incarcerated left inguinal/scrotal hernia, plan for OR as per surgery aw aiting cardiology clearance. Pain control 2. Obstructive uropathy, Bills catheter in place. Seen and evaluated by urology, started on Flomax daily. 3. DVT prophylaxis with subcu heparin 4. Mild headache, Tylenol as needed 5. Nasal congestion, patient informed that he use phenylephrine at home. He might be having some rebound symptoms. I would order phenylephrine nasal spray as needed.
[2020-06-09] MEDS ORDERED: METOPROLOL TARTRATE 5 MG/5 ML VIAL IVP ONE (11:20)
[2020-06-09] MEDS ORDERED: ATROPINE SULFATE 0.1 MG/ML 10ML SYRINGE ONE (11:20)
[2020-06-09] MEDS: SODIUM FERRIC GLUCONAT-SUCROSE 125 MG in SODIUM CHLORIDE 0.9% 100 ML IVPB SCH (12:41)
--- NOTE | 2020-06-09 13:15 | P.PN ---
Subjective HISTORY OF PRESENTING ILLNESS This is a pleasant 59-year-old -[place] male past medical history significant for former nicotine dependence. He also has significant family history of premature coronary artery disease in his mother, father, sister and both brothers. 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 He is seen and examined resting comfortably lying flat in no acute distress. He has had no further symptoms of chest discomfort. Breathing is stable. He continues to complain of a headache. He states it feel like his eyes or popping out of his head. Blood pressure 140/90 heart rate 89 afebrile maintaining oxygen saturation on room air. Lisinopril was started yesterday. Laboratory data reviewed, LDL 131, HDL 55, sodium 138, potassium 4.9, creatinine 0.78 echocardiogram obtained reveals preserved LV systolic function with ejection fraction greater than 55%, mild MR and mild TR. Dobutamine stress echo is negative for ischemia. PHYSICAL EXAMINATION CONSTITUTIONAL: No apparent distress. HEENT: Head is normocephalic. Pupils are equal, round. Sclerae anicteric. Mucous membranes of the mouth are moist. No JVD. No carotid bruit. CHEST EXAMINATION: Lungs are clear to auscultation. No chest wall tenderness is noted on palpation or with deep breathing. HEART EXAMINATION: Regular rate and rhythm. S1, S2 heard. No murmurs, gallops or rub. EXTREMITIES: 2+ peripheral pulses, no lower extremity edema and no calf tenderness. ASSESSMENT Chest pain, atypical for angina. An acute coronary event has been ruled out. Incarcerated scrotal hernia Hypertension, new onset Family history of premature coronary artery disease PLAN Stress test is negative for stress induced ischemia. Stable to proceed with surgery as planned, there are no acute contraindications. Nurse Practitioner note has been reviewed, I agree with a documented findings and plan of care. Patient was seen and examined. Objective - Vital Signs Vital signs: Vital Signs Temp 98.7 F 06/09/20 09:00 Pulse 89 06/09/20 09:00 Resp 12 06/09/20 09:00 BP 140/90 06/09/20 09:00 Pulse Ox 92 L 06/09/20 09:00 Intake & Output 06/08/20 06/09/20 06/09/20 18:59 06:59 18:59 Intake Total 150 Output Total 20990 Balance -2099 -1700 150 Intake: Intake, IV Titration 150 Amount Sodium Chloride 0.9% 1, 150 000 ml @ 75 mls/hr IV . [id number] [facility] Rx#:[id number] Output: Urine 2100 1700 Other: Voiding Method Indwelling Catheter Indwelling Catheter - Labs CBC & Chem 7: 06/09/20 06:10 06/09/20 06:10 Labs: Abnormal Lab Results - Last 24 Hours (Table) 06/08/20 06/09/20 06/09/20 Range/Units 11:09 06:10 06:10 Lymphocytes # 0.9 L (1.0-4.8) k/uL Glucose 101 H (74-99) mg/dL Cholesterol 213 H (<200) mg/dL LDL Cholesterol, Calc 131 H (0-99) mg/dL
--- NOTE | 2020-06-09 13:15 | P.STRESS ---
- Stress Test Note Stress Test Results/Findings: Exam Performed: dobutamine stress echo Exam Date: 06/09/20 Reason for Exam: Chest pain Height: 5 ft 7 in Weight: 67.132 kg Protocol: Dobutamine stress echo Stage: 4 Duration of Exercise: 12.0 Resting Heart Rate: 79 Resting Blood Pressure: 139/97 Maximum Achieved Heart Rate: 154 Maximum Achieved Blood Pressure: 165/66 85% PMHR: 135 100% PMHR: 159 METS: Technologist Comment: Stress Test Results/Findings: Patient underwent dobutamine stress echo for a total of 12 minutes, reaching stage IV with 40 g of dobutamine infused with atropine 0.5 mg given as well. Stress EKG portion: At baseline EKG shows sinus rhythm with a rate of 79 bpm, normal axis and T-wave flattening in 1 and aVL. With stress at peak infusion, there is nonspecific [address] depression in the inferior lateral leads which improved with rest. Occasional PVCs noted during recovery. Stress echo portion: Using 2-D echo, images were obtained from the parasternal long, personal short, apical for an apical 2 chamber views. At baseline, low-dose, peak and recovery images were obtained. At baseline patient has an ejection fraction of 60% without wall motion abnormalities. With stress there is improvement in contractility, decrease in left ventricular dimension without any wall motion abnormalities. Conclusions: 1. Normal EKG and echo response to stress without inducible ischemia. 2. Occasional PVCs noted in recovery.
[2020-06-09] MEDS ORDERED: LACTATED RINGERS 1,000 ML IV ONE (13:40)
[2020-06-09] MEDS ORDERED: ONDANSETRON 4 MG/2 ML VIAL ONE (15:41)
[2020-06-09] MEDS ORDERED: MIDAZOLAM 2 MG/2 ML VIAL IV ONE (15:45)
[2020-06-09] MEDS ORDERED: ONDANSETRON 4 MG/2 ML VIAL IVP ONE (15:45)
--- NOTE | 2020-06-09 16:14 | P.ANPRN ---
Procedure Note - Anesthesia - Nerve Block Performed Bilateral Transversus Abdominis Single Time Out Performed: Yes ([id number]) Date of Procedure: 06/09/20 Procedure Start Time: 15:46 Procedure Stop Time: 15:56 Location of Patient: PreOp Indication: Acute Post-Operative Pain, Analgesia, Dx/Pain Location, Requested by Surgeon Specifically requested for management of pain by DrWilliam: Katerina Alarcon Sedation Type: Sedate with meaningful contact maintained Preparation: Sterile Prep Position: Supine Catheter: None Needle Types: Pajunk Needle Gauge: 20 Ultrasound used to visualize needle placement: Yes Ultrasound used to observe medication spread: Yes Injectate: Other (see comment) (20 mL ropivacane 0.5% each side) Blood Aspirated: Yes Pain Paresthesia on Injection Noted: Yes Resistance on Injection: Normal Image Stored and Saved: Yes Events: Uneventful and Well Tolerated
[2020-06-09] MEDS ORDERED: fentaNYL (PF) 50 MCG/ML 2 ML AMP ONE (16:37)
[2020-06-09] MEDS ORDERED: PROPOFOL 10 MG/ML 20 ML VIAL IV ONE (16:37)
[2020-06-09] MEDS ORDERED: ROPIVACAINE 5 MG/ML 30 ML VIAL ONE (16:37)
[2020-06-09] MEDS ORDERED: LIDOCAINE 1% INJ 10MG/ML (20 ML MDV) ONE (16:37)
[2020-06-09] MEDS ORDERED: NEOSTIGMINE 1 MG/ML 10 ML VIAL ONE (16:37)
[2020-06-09] MEDS ORDERED: ROCURONIUM BROMIDE 10 MG/ML 5 ML VIAL IV ONE (16:37)
[2020-06-09] MEDS ORDERED: HYDROmorphone (PF) 1 MG/ML ONE (16:37)
[2020-06-09] MEDS ORDERED: GLYCOPYRROLATE 0.2 MG/ML 2 ML VIAL ONE (16:37)
[2020-06-09] MEDS ORDERED: SODIUM CHLORIDE 0.9% 100 ML BAG ONE (16:37)
[2020-06-09] MEDS ORDERED: ceFAZolin 1,000 MG VIAL ONE (16:37)
[2020-06-09] MEDS ORDERED: LIDOCAINE 2%-EPI 1:100,000 20 ML VIAL SQ ONE (17:32)
[2020-06-09] MEDS ORDERED: ONDANSETRON 4 MG/2 ML VIAL IVP PRN (18:40)
[2020-06-09] MEDS ORDERED: NALOXONE 0.4 MG/ML 1 ML VIAL IV PRN (18:40)
--- NOTE | 2020-06-09 18:44 | P.PCN ---
Date of Procedure: 06/09/20 Preoperative Diagnosis: Incarcerated left inguinal hernia with small bowel obstruction Procedure(s) Performed: Robotic Repair of large left inguinal hernia Anesthesia: GETA, regional, local Surgeon: Katerina Alarcon Estimated Blood Loss (ml): 10 Pathology: other (Left inguinal hernia sac) Condition: stable
[2020-06-09] MEDS: TAMSULOSIN 0.4 MG CAP.ER.24H PO SCH (20:00)
[2020-06-10] MEDS: ACETAMINOPHEN TAB 500 MG TAB PO PRN (03:05)
[2020-06-10] MEDS: KETOROLAC 15 MG/ML 1 ML VIAL IVP SCH ×2 (05:12→11:08)
[2020-06-10 06:02] LABS: Basophils % (A) 0 %; Eosinophils # (A) 0.1 k/uL (0-0.7); Eosinophils % (A) 1 %; HCT 38.6 % (39.0-53.0); HGB 12.1 gm/dL (13.0-17.5); Lymphocytes # (A) 0.6 k/uL (1.0-4.8); Lymphocytes % (A) 8 %; MCH 28.3 pg (25.0-35.0); MCHC 31.3 g/dL (31.0-37.0); MCV 90.4 fL (80.0-100.0); Mean Platelet Volume 6.5; Monocytes # (A) 0.4 k/uL (0-1.0); Monocytes % (A) 5 %; Neutrophils # (A) 6.3 k/uL (1.3-7.7); Neutrophils % (A) 84 %; Platelet Count 289 k/uL (150-450); RBC 4.27 m/uL (4.30-5.90); WBC 7.5 k/uL (3.8-10.6)
[2020-06-10 06:11] LABS: African American GFR (CKD) >90 (>60 ml/min/1.73 sqM); Anion Gap 4 mmol/L; Blood Urea Nitrogen 12 mg/dL (9-20); Calcium 8.7 mg/dL (8.4-10.2); Carbon Dioxide 28 mmol/L (22-30); Chloride 104 mmol/L (98-107); Glucose 99 mg/dL (74-99); Non-African American GFR(CKD) >90 (>60 ml/min/1.73 sqM); Potassium 4.5 mmol/L (3.5-5.1); Sodium 136 mmol/L (137-145)
[2020-06-10] MEDS: lisinopriL 10 MG TAB PO SCH (07:40)
[2020-06-10] MEDS: HEPARIN SODIUM,PORCINE 5,000 UNIT/ML 1 ML VIAL SQ SCH ×2 (07:40→21:25)
[2020-06-10] MEDS: HYDROmorphone 0.5 MG/0.5 ML SYRINGE IVP PRN ×2 (07:46→21:28)
--- NOTE | 2020-06-10 09:08 | P.PN ---
Subjective Progress Note Date: 06/09/20 Principal diagnosis: Questions answered regarding surgery. Await cardiac clearance and stress test. Objective - Vital Signs Vital signs: Vital Signs Temp 97.3 F L 06/10/20 07:32 Pulse 90 06/10/20 07:32 Resp 16 06/10/20 07:32 BP 114/77 06/10/20 07:32 Pulse Ox 95 06/10/20 07:44 Intake & Output 06/09/20 06/10/20 06/10/20 18:59 06:59 18:59 Intake Total 1000 300 Output Total 510 2800 Balance 490 -2500 Intake: IV 850 Intake, IV Titration 150 Amount Sodium Chloride 0.9% 1, 150 000 ml @ 75 mls/hr IV . [id number] [facility] Rx#:[id number] Oral 300 Output: Urine 500 2800 Estimated Blood Loss 10 Other: Voiding Method Indwelling Catheter Indwelling Catheter - Labs CBC & Chem 7: 06/10/20 05:34 06/10/20 05:34 Labs: Abnormal Lab Results - Last 24 Hours (Table) 06/10/20 06/10/20 Range/Units 05:34 05:34 RBC 4.27 L (4.30-5.90) m/uL Hgb 12.1 L (13.0-17.5) gm/dL Hct 38.6 L (39.0-53.0) % Lymphocytes # 0.6 L (1.0-4.8) k/uL Sodium 136 L (137-145) mmol/L Assessment and Plan (1) Hematuria Current Visit: Yes Status: Acute Code(s): R31.9 - HEMATURIA, UNSPECIFIED SNOMED Code(s): 71994380 (2) Hypertensive heart disease Current Visit: Yes Status: Acute Code(s): I11.9 - HYPERTENSIVE HEART DISEASE WITHOUT HEART FAILURE SNOMED Code(s): 22709741 (3) AV block, 1st degree Current Visit: Yes Status: Acute Code(s): I44.0 - ATRIOVENTRICULAR BLOCK, FIRST DEGREE SNOMED Code(s): 350128699 (4) Incarcerated inguinal hernia Current Visit: Yes Status: Acute Code(s): K40.30 - UNIL INGUINAL HERNIA, W OBST, W/O GANGR, NOT SPCF RECUR SNOMED Code(s): 802350661 (5) Enlarged prostate with lower urinary tract symptoms (LUTS) Current Visit: Yes Status: Acute Code(s): N40.1 - BENIGN PROSTATIC HYPERPLASIA WITH LOWER URINARY TRACT SYMP SNOMED Code(s): 132596251 (6) Iron deficiency anemia Current Visit: Yes Status: Acute Code(s): D50.9 - IRON DEFICIENCY ANEMIA, UNSPECIFIED SNOMED Code(s): 19142190 (7) Small bowel obstruction Current Visit: Yes Status: Acute Code(s): K56.609 - UNSP INTESTNL OBST, UNSP TO PARTIAL VERSUS COMPLETE OBST SNOMED Code(s): 438579548
--- NOTE | 2020-06-10 10:30 | P.PN ---
Subjective Progress Note Date: 06/10/20 Patient is still complaining of persistent headache and sinus congestion. He did not get relief with Tylenol and phenylephrine. Objective - Vital Signs Vital signs: Vital Signs Temp 97.3 F L 06/10/20 07:32 Pulse 90 06/10/20 07:32 Resp 16 06/10/20 07:32 BP 114/77 06/10/20 07:32 Pulse Ox 95 06/10/20 07:44 Intake & Output 06/09/20 06/10/20 06/10/20 18:59 06:59 18:59 Intake Total 1000 300 Output Total 510 2800 Balance 490 -2500 Intake: IV 850 Intake, IV Titration 150 Amount Sodium Chloride 0.9% 1, 150 000 ml @ 75 mls/hr IV . [id number] [facility] Rx#:[id number] Oral 300 Output: Urine 500 2800 Estimated Blood Loss 10 Other: Voiding Method Indwelling Catheter Indwelling Catheter - Exam General: The patient is awake and alert, in no distress Eye: there is normal conjunctiva bilaterally. Neck: The neck is supple, there is no JVD. Cardiovascular: Normal S1-S2, no S3-S4, no murmurs. Respiratory: Lungs clear to auscultation bilaterally Gastrointestinal: Abdomen is soft, nontender Musculoskeletal: There is no pedal edema. Neurological:. Speech is normal. Skin: Skin is warm and dry - Labs CBC & Chem 7: 06/10/20 05:34 06/10/20 05:34 Labs: Abnormal Lab Results - Last 24 Hours (Table) 06/10/20 06/10/20 Range/Units 05:34 05:34 RBC 4.27 L (4.30-5.90) m/uL Hgb 12.1 L (13.0-17.5) gm/dL Hct 38.6 L (39.0-53.0) % Lymphocytes # 0.6 L (1.0-4.8) k/uL Sodium 136 L (137-145) mmol/L Assessment and Plan Assessment: 1. Incarcerated left inguinal/scrotal hernia, postoperative day #1 status post robotic hernia repair. Postoperative care and pain control per surgery. 2. Obstructive uropathy, Bills catheter in place. Seen and evaluated by urology, started on Flomax daily. Voiding trial as directed by urology 3. DVT prophylaxis with subcu heparin 4. Persistent headache with sinus congestion. Minimal relief with Tylenol and phenylephrine. No drainage or evidence of bacterial sinusitis. I would obtain a computed tomography scan for further evaluation.
[2020-06-10] MEDS: SODIUM CHLORIDE 0.9% 1,000 ML IV SCH ×2 (10:45→17:30)
[2020-06-10] MEDS: SODIUM FERRIC GLUCONAT-SUCROSE 125 MG in SODIUM CHLORIDE 0.9% 100 ML IVPB SCH (11:08)
--- NOTE | 2020-06-10 11:20 | CT ---
EXAMINATION TYPE: CT sinus wo con DATE OF EXAM: 06/10/2020 COMPARISON: None HISTORY: 59-year-old male Headache with eye pressure for [address] DLP: 1031.4 mGycm Automated exposure control for dose reduction was used. TECHNIQUE: Noncontrast axial views of the paranasal sinuses were obtained. Coronal reconstructions pe rformed. FINDINGS: PARANASAL SINUSES: Trace mucosal thickening right frontal sinus. Otherwise, the ethmoid, maxillary and sphenoid sinuses are clear and well pneumatized. There is no air-fluid level. Reactive cristal- osteogenesis is not seen. There is no destruction of the osseous durbin of the paranasal sinuses. THE NASAL CAVITY: The osteomeatal complexes are patent. Slight rightward nasal septal deviation. The imaged brain and orbits are normal in appearance. Mastoid air cells and middle ear cavities are well pneumatized. Tiny nonspecific 2 mm calcification a long the deep aspect of the right external auditory canal. There is an expansile periapical lucency involving the right maxillary first molar measuring up to 1. 4 cm in bulging into the floor of the right maxillary sinus. Reformatted images confirm above findings. IMPRESSION: 1. Only mild mucosal thickening right frontal sinus. Otherwise, no significant paranasal sinus diseas e. 2. Slight rightward nasal septal deviation. 3. A 1.4 cm expansile periapical lucency involving the right maxillary first molar bulging into the f demar of the right maxillary sinus. Consider periodontal disease with a prominent periapical abscess v ersus a dentigerous cyst.
--- NOTE | 2020-06-10 11:21 | CT ---
EXAMINATION TYPE: CT brain wo con DATE OF EXAM: 06/10/2020 COMPARISON: None HISTORY: 59-year-old male Headache with eye pressure for 4 days TECHNIQUE: Examination was done in axial plane without intravenous contrast. Coronal and sagittal r econstructions performed. CT DLP: 1031.4 mGycm Automated exposure control for dose reduction was used. FINDINGS: There is no evidence of acute intracranial hemorrhage, acute ischemic changes, mass, mass-effect, or extra-axial fluid collection. There is no effacement of cerebral sulci or basal subarachnoid cister ns. There is no hydrocephalus. There is no midline shift. Bear-white matter distinction is preserv ed. Mastoid air cells are well pneumatized. Paranasal sinuses reported separately. IMPRESSION: No acute intracranial abnormality seen. Paranasal sinuses reported separately.
[2020-06-10] MEDS ORDERED: MAGNESIUM HYDROXIDE 2,400 MG/10 ML CUP PO ONE (14:22)
[2020-06-10] MEDS: AMOXIC-POT CLAV 875-125MG 1 EACH TAB PO SCH ×2 (15:14→21:25)
[2020-06-10] MEDS: LORATADINE 10 MG TAB PO SCH (15:35)
--- NOTE | 2020-06-10 16:00 | P.PN ---
<Dagmar Richards - Last Filed: 06/10/20 15:49> Subjective Progress Note Date: 06/10/20 CHIEF COMPLAINT: Abdominal pain with incarcerated small bowel containing inguinal hernia HISTORY OF PRESENT ILLNESS: The patient is a 59 year old male who comes in with urinary retention, hematuria, incarcerated left inguinal hernia, with symptoms of obstruction. Patient is status post robotic repair of large left femoral hernia. Patient is complaining of abdominal pain and not having bowel movement. He has decreased appetite. He is also complaining of headache and sinus congestion. Computed tomography scan Sinusitis had shown periapical lucency involving the right maxillary first molar bulging into the floor of the right mentally sinus. Consider periodontal disease with a prominent periapical abscess versus dentigerous cyst. Medicine started Augmentin. Patient is afebrile. WBC 7.5 hemoglobin 12.1 PHYSICAL EXAM: VITAL SIGNS: Reviewed GENERAL: Well-developed in no acute distress. HEENT: No sclera icterus. Extraocular movements grossly intact. Moist buccal mucosa. Head is atraumatic, normocephalic. Hears conversational speech. No nasal drainage. NECK: Supple without lymphadenopathy. CHEST: Non-labored respirations and equal bilateral excursions. CARDIOVASCULAR: Regular rate with regular rhythm. Palpable 2+ radial pulses. ABDOMEN: Soft. Nondistended. Diffuse tenderness with palpation MUSCULOSKELETAL: No clubbing or cyanosis. NEUROLOGIC: No focal or lateralizing signs. Cranial nerves II through XII grossly intact. PSYCH: Appropriate affect. Alert and oriented to person, place and time. SKIN: Well perfused. Good skin turgor. ASSESSMENT: 1. Incarcerated left inguinal hernia with small bowel obstruction Status post Robotic Repair of large left inguinal hernia. Postop day #1 3. Hematuria with urinary retention 4. Anemia, present on admission 5. History of bilateral inguinal hernia 6. Headache 7. Daily caffeine intake 8. Chest pain 9. Hypertensive heart disease 10. Dehydration 11. Iron deficiency anemia, present on admission 12. Enlarged prostate PLAN: -Add milk of magnesia 1 to help with constipation -Also recommend daily prune juice -Add Claritin for sinus congestion -Antibiotics per medicine -Patient to follow-up with urology outpatient. Will keep tovar catheter until patient is able to follow-up with urology. -Anticipate discharge home tomorrow Physician Benefits Advisor note has been reviewed by physician. Signing provider agrees with the documented findings, assessment, and plan of care. Objective - Vital Signs Vital signs: Vital Signs Temp 98.6 F 06/10/20 15:26 Pulse 76 06/10/20 15:26 Resp 16 06/10/20 15:26 BP 148/82 06/10/20 15:26 Pulse Ox 97 06/10/20 15:26 Intake & Output 06/09/20 06/10/20 06/10/20 18:59 06:59 18:59 Intake Total 1000 300 Output Total 510 2800 900 Balance 490 -2500 -900 Intake: IV 850 Intake, IV Titration 150 Amount Sodium Chloride 0.9% 1, 150 000 ml @ 75 mls/hr IV . [id number] [facility] Rx#:[id number] Oral 300 Output: Urine 500 2800 900 Estimated Blood Loss 10 Other: Voiding Method Indwelling Catheter Indwelling Catheter - Labs CBC & Chem 7: 06/10/20 05:34 06/10/20 05:34 Labs: Abnormal Lab Results - Last 24 Hours (Table) 06/10/20 06/10/20 Range/Units 05:34 05:34 RBC 4.27 L (4.30-5.90) m/uL Hgb 12.1 L (13.0-17.5) gm/dL Hct 38.6 L (39.0-53.0) % Lymphocytes # 0.6 L (1.0-4.8) k/uL Sodium 136 L (137-145) mmol/L <Katerina Alarcon - Last Filed: 06/11/20 22:43> Subjective Patient seen and evaluated with additional findings below: Patient complains of constipation which is to have bowel movement prior to discharge. Otherwise no recurrence of inguinal hernia along the left groin. ABDOMEN: No peritonitis. Appropriate mild tenderness left lower quadrant. No diffuse tenderness noted. : Urine clear without hematuria ASSESSMENT: Incarcerated initial left inguinal hernia bowel obstruction PLAN: 1. Management of sinus headache per medicine 2. Likely discharge with Tovar catheter due to pre-existing urinary retention and enlarged prostate 3. Follow up with urologist as an outpatient for removal of Tovar catheter Objective - Vital Signs Vital signs: Vital Signs Temp 98.3 F 06/11/20 15:22 Pulse 95 06/11/20 15:22 Resp 16 06/11/20 07:27 BP 137/96 06/11/20 15:22 Pulse Ox 99 06/11/20 15:22 Intake & Output 06/11/20 06/11/20 06/12/20 06:59 18:59 06:59 Output Total 1600 1400 Balance -1600 -1400 Output: Urine 1600 1400 Other: Voiding Method Indwelling Catheter # Voids 2 # Bowel Movements 3 - Labs CBC & Chem 7: 06/11/20 05:33 06/11/20 05:33 Labs: Abnormal Lab Results - Last 24 Hours (Table) 06/11/20 Range/Units 05:33 RBC 4.01 L (4.30-5.90) m/uL Hgb 11.6 L (13.0-17.5) gm/dL Hct 36.4 L (39.0-53.0) % Lymphocytes # 0.9 L (1.0-4.8) k/uL Assessment and Plan (1) Hematuria Status: Acute Code(s): R31.9 - HEMATURIA, UNSPECIFIED SNOMED Code(s): 38089572 (2) Hypertensive heart disease Status: Acute Code(s): I11.9 - HYPERTENSIVE HEART DISEASE WITHOUT HEART FAILURE SNOMED Code(s): 10627739 (3) AV block, 1st degree Status: Acute Code(s): I44.0 - ATRIOVENTRICULAR BLOCK, FIRST DEGREE SNOMED Code(s): 452627961 (4) Incarcerated inguinal hernia Status: Acute Code(s): K40.30 - UNIL INGUINAL HERNIA, W OBST, W/O GANGR, NOT SPCF RECUR SNOMED Code(s): 113359248 (5) Enlarged prostate with lower urinary tract symptoms (LUTS) Status: Acute Code(s): N40.1 - BENIGN PROSTATIC HYPERPLASIA WITH LOWER URINARY TRACT SYMP SNOMED Code(s): 256319808 (6) Iron deficiency anemia Status: Acute Code(s): D50.9 - IRON DEFICIENCY ANEMIA, UNSPECIFIED SNOMED Code(s): 05387051 (7) Small bowel obstruction Status: Acute Code(s): K56.609 - UNSP INTESTNL OBST, UNSP TO PARTIAL VERSUS COMPLETE OBST SNOMED Code(s): 678115905
[2020-06-10] MEDS: TAMSULOSIN 0.4 MG CAP.ER.24H PO SCH (17:29)
[2020-06-11] MEDS: SODIUM CHLORIDE 0.9% 1,000 ML IV SCH ×2 (02:38→10:06)
[2020-06-11 06:11] LABS: Basophils % (A) 0 %; Eosinophils # (A) 0.1 k/uL (0-0.7); Eosinophils % (A) 2 %; HCT 36.4 % (39.0-53.0); HGB 11.6 gm/dL (13.0-17.5); Lymphocytes # (A) 0.9 k/uL (1.0-4.8); Lymphocytes % (A) 15 %; MCV 90.7 fL (80.0-100.0); Mean Platelet Volume 6.7; Monocytes # (A) 0.4 k/uL (0-1.0); Monocytes % (A) 7 %; Neutrophils # (A) 4.4 k/uL (1.3-7.7); Neutrophils % (A) 75 %; Platelet Count 255 k/uL (150-450); RBC 4.01 m/uL (4.30-5.90); RDW 14.8 % (11.5-15.5); WBC 5.9 k/uL (3.8-10.6)
[2020-06-11 06:22] LABS: African American GFR (CKD) >90 (>60 ml/min/1.73 sqM); Anion Gap 3 mmol/L; Blood Urea Nitrogen 12 mg/dL (9-20); Calcium 8.7 mg/dL (8.4-10.2); Carbon Dioxide 30 mmol/L (22-30); Chloride 104 mmol/L (98-107); Glucose 96 mg/dL (74-99); Non-African American GFR(CKD) >90 (>60 ml/min/1.73 sqM); Potassium 4.5 mmol/L (3.5-5.1); Sodium 137 mmol/L (137-145)
[2020-06-11 07:38] VITALS: RESP 16
[2020-06-11] MEDS: LORATADINE 10 MG TAB PO SCH (07:38)
[2020-06-11] MEDS: lisinopriL 10 MG TAB PO SCH (07:38)
[2020-06-11] MEDS: HEPARIN SODIUM,PORCINE 5,000 UNIT/ML 1 ML VIAL SQ SCH (07:39)
[2020-06-11] MEDS: AMOXIC-POT CLAV 875-125MG 1 EACH TAB PO SCH (07:39)
--- NOTE | 2020-06-11 10:13 | P.PN ---
Subjective Progress Note Date: 06/11/20 Patient is complaining of bleeding from around the Bills catheter. He denies any pain. He does not recall putting on the catheter. Headache is better. Objective - Vital Signs Vital signs: Vital Signs Temp 98.5 F 06/11/20 07:27 Pulse 85 06/11/20 07:27 Resp 16 06/11/20 07:27 BP 150/98 06/11/20 07:27 Pulse Ox 96 06/11/20 07:27 Intake & Output 06/10/20 06/11/20 06/11/20 18:59 06:59 18:59 Output Total 900 1600 1000 Balance -900 -1600 -1000 Output: Urine 900 1600 1000 Other: Voiding Method Indwelling Catheter Indwelling Catheter # Voids 2 # Bowel Movements 3 - Exam General: The patient is awake and alert, in no distress Eye: there is normal conjunctiva bilaterally. Neck: The neck is supple, there is no JVD. Cardiovascular: Normal S1-S2, no S3-S4, no murmurs. Respiratory: Lungs clear to auscultation bilaterally Gastrointestinal: Abdomen is soft, nontender Musculoskeletal: There is no pedal edema. Neurological:. Speech is normal. Skin: Skin is warm and dry - Labs CBC & Chem 7: 06/11/20 05:33 06/11/20 05:33 Labs: Abnormal Lab Results - Last 24 Hours (Table) 06/11/20 Range/Units 05:33 RBC 4.01 L (4.30-5.90) m/uL Hgb 11.6 L (13.0-17.5) gm/dL Hct 36.4 L (39.0-53.0) % Lymphocytes # 0.9 L (1.0-4.8) k/uL Assessment and Plan Assessment: 1. Incarcerated left inguinal/scrotal hernia, postoperative day #2 status post robotic hernia repair. Postoperative care and pain control per surgery. 2. Obstructive uropathy, Bills catheter in place. Seen and evaluated by urology, started on Flomax daily. Voiding trial as directed by urology and possibly prior to discharge 3. Essential hypertension, newly diagnosed during this admission. Started on lisinopril 10 mg daily. Blood pressure not well controlled. Increase lisinopril to 20 mg daily. 4. 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 Started on Augmentin twice daily to finish 7 days course. Advised to follow-up with his dentist [facility] after discharge. I sent prescription for lisinopril 20 mg daily, Augmentin twice daily, and Flomax 0.4 mg daily to the pharmacy. Discharge planning per primary team possibly today awaiting voiding trial I will sign off on the patient. Please call back with questions as needed. Thank you very much for the consultation.
[2020-06-11] MEDS: ACETAMINOPHEN TAB 500 MG TAB PO PRN (11:10)
--- NOTE | 2020-06-11 14:00 | P.DS ---
<Dagmar Richards - Last Filed: 06/11/20 13:54> Providers Expected date of discharge: 06/11/20 Hospital Course: Discharge diagnosis 1. Incarcerated left inguinal hernia with small bowel obstruction Status post Robotic Repair of large left inguinal hernia. 3. Hematuria with urinary retention 4. Anemia, present on admission 5. History of bilateral inguinal hernia 6. Headache 7. Daily caffeine intake 8. Chest pain 9. Hypertensive heart disease 10. Dehydration 11. Iron deficiency anemia, present on admission 12. Enlarged prostate 13. Periodontal abscess with headache Hospital course This patient is a 59 year old male who comes in with pre-existing history of bilateral inguinal hernias. His right inguinal hernia was repaired many years ago. He reports intermittent reduction of his left inguinal hernia in the last 6 months. He comes in after trying to strain to have a bowel movement then he noticed a bulge along the left groin that was tender. He underwent Robotic Repair of large left inguinal hernia with Dr. Alarcon. He tolerated surgery well. No complications. He is afebrile. He is tolerating diet. He had a bowel movement. He's been up and ambulating. Patient is stable for discharge. Physician Enrollment Representative note has been reviewed by physician. Signing provider agrees with the documented findings, assessment, and plan of care. Patient Condition at Discharge: Stable Plan - Discharge Summary Discharge Rx Participant: No New Discharge Prescriptions: New Amoxic-Pot Clav 875-125Mg [Augmentin 875-125] 1 tab PO BID 6 Days #12 tab Tamsulosin [Flomax] 0.4 mg PO DAILY #30 cap lisinopriL 20 mg PO DAILY #30 tab Acetaminophen Tab [Tylenol Tab] 650 mg PO Q4H PRN #30 tablet PRN Reason: Pain Discharge Medication List Acetaminophen Tab [Tylenol Tab] 650 mg PO Q4H PRN #30 tablet 06/11/20 [Rx] Amoxic-Pot Clav 875-125Mg [Augmentin 875-125] 1 tab PO BID 6 Days #12 tab 06/11/20 [Rx] Tamsulosin [Flomax] 0.4 mg PO DAILY #30 cap 06/11/20 [Rx] lisinopriL 20 mg PO DAILY #30 tab 06/11/20 [Rx] Follow up Appointment(s)/Referral(s): Live Walker MD [STAFF PHYSICIAN] - 06/23/20 1:40 pm Katerina Alarcon MD [STAFF PHYSICIAN] - 06/26/20 3:40 pm None,Stated [Primary Care Provider] - 1-2 days Patient Instructions/Handouts: Enlarged Prostate (BPH) (DC), Bills Catheter Placement and Care (DC), Inguinal Hernia (DC), Urinary Leg Bag (GEN) Activity/Diet/Wound Care/Special Instructions: No lifting over 10 pounds in 4 weeks until Jul 09. May shower. No bath tub soaks for two weeks until Jun 25. Avoid steak, tough meats and seeds such as raspberry seeds. Use ice along incisions for the today to prevent swelling. Follow up with dentist for oral abscesses Discharge Disposition: HOME SELF-CARE <Katerina Alarcon - Last Filed: 06/11/20 22:46> Providers Date of admission: 06/08/20 07:14 Attending physician: Katerina Alarcon Consults: 06/07/20 09:40 Consult Physician Routine Consulting Provider: Live Walker Consult Reason/Comments: urinary retention Do you want consulting provider notified?: Yes 06/07/20 09:41 Consult Physician Routine Consulting Provider: Remi Boothe Consult Reason/Comments: medical management Do you want consulting provider notified?: Yes 06/07/20 13:41 Consult Physician Routine Consulting Provider: Carla Ruby Consult Reason/Comments: Chest pain, cardiac clearance Do you want consulting provider notified?: Yes Primary care physician: Stated None - Discharge Diagnosis(es) (1) Hematuria Status: Acute (2) Hypertensive heart disease Status: Acute (3) AV block, 1st degree Status: Acute (4) Incarcerated inguinal hernia Status: Acute (5) Enlarged prostate with lower urinary tract symptoms (LUTS) Status: Acute (6) Iron deficiency anemia Status: Acute (7) Small bowel obstruction Status: Acute Hospital Course: Patient seen and evaluated above. Patient being discharged with the medications for uncontrolled hypertension, urinary obstruction pre-existing to admission, antibiotics for pre-existing sinus infection. Recommend follow-up with urologist. Also follow up with surgeon in 2 weeks. Patient discharged to the custody of law enforcement Procedures: OPERATION: 1. Robotic-assisted da Ellen Xi laparoscopic reduction repair of initial incarcerated left direct inguinal hernia with mesh, 11.[address] ANESTHESIA: General with local anesthetic ESTIMATED BLOOD LOSS: 10 mL. SPECIMENS: 1. Incarcerated left inguinal hernia sac COMPLICATIONS: None. FINDINGS: 1. Incarcerated direct left inguinal hernia 3 x 3 cm, Nyhus III, incorporating small bowel with partial obstruction extending to scrotum 2. No recurrent right inguinal hernia 3. Non absorbable sutures for closure of defect and placement of mesh
[2020-06-11 15:27] VITALS: BP 137/96; PULSE 95; TEMP 98.3
--- NOTE | 2020-06-11 22:39 | P.OP ---
Date of Procedure: 06/09/20 Description of Procedure: SURGEON: ADDISON RICHARDS MD PREOPERATIVE DIAGNOSES: 1. Acute incarcerated left inguinal hernia with small bowel obstruction 2. Acute urinary retention with hematuria 3. Hypertensive heart disease 4. Iron deficiency anemia 5. History of bilateral inguinal hernia 6. Enlarged prostate POSTOPERATIVE DIAGNOSES: 1. Acute incarcerated left inguinal hernia with small bowel obstruction 2. Acute urinary retention with hematuria 3. Hypertensive heart disease 4. Iron deficiency anemia 5. History of bilateral inguinal hernia 6. Enlarged prostate OPERATION: 1. Robotic-assisted da Ellen Xi laparoscopic reduction repair of initial incarcerated left direct inguinal hernia with mesh, 11.[address] ANESTHESIA: General with local anesthetic ESTIMATED BLOOD LOSS: 10 mL. SPECIMENS: 1. Incarcerated left inguinal hernia sac COMPLICATIONS: None. FINDINGS: 1. Incarcerated direct left inguinal hernia 3 x 3 cm, Nyhus III, incorporating small bowel with partial obstruction extending to scrotum 2. No recurrent right inguinal hernia 3. No absorbable sutures for closure of defect and placement of mesh INDICATIONS: The patient is a 59-year-old male who presents with history of bilateral inguinal hernias. His right side was fixed previously. He presented acutely with incarcerated left inguinal hernia with change in bowel habits and clinical bowel obstruction. He completed a cardiac risk assessment due to presentation of acute chest pain and completed stress test prior to his procedure with ejection fraction of 55%. Surgical intervention was described including open and robotic approaches. Benefits and risks including bleeding, i nfection, chronic groin pain, sterility were reviewed. Placement of mesh was also described. Informed consent was obtained. DESCRIPTION: In the preoperative area, an abdominal block was placed per anesthesia. The patient was brought to the operating room and initially laid in supine position. The abdomen had been prepped and draped in standard sterile fashion. Ioban draping was also placed. Prior to incision, a timeout protocol was confirmed with surgical team regarding patient's name including procedures to be performed. Initial positioning for the robotic assisted ports were selected 20 cm superior to the target anatomy. A 0 degree 5 mm laparoscopic trocar entry was performed at the left upper quadrant. The abdomen was insufflated to 15 mmHg which he tolerated well. Diagnostic laparoscopy demonstrated no injury to bowel, viscera or mesentery. Incarcerated small bowel was also found along the left direct inguinal hernia without ischemic changes. With gentle downward pressure on the scrotum, the small bowel was reduced into the abdominal cavity. Next, along the epigastrium, 8 mm robot trocar was placed. An 8-mm robotic trocar was placed under direct visualization at the right upper quadrant. An 8 mm port was placed at the left upper quadrant. All trocars were positioned between 10-cm apart from each other. The [employer] XI robot was primed, draped, prepared for docking along upper abdomen of the patient. The patient was positioned 16 steep Trendelenburg position. I then went to the [employer] Xi console. The visitor services assistant was at bedside for exchange of the robot arms and equipment. Attention was brought to the left groin. A large left inguinal defect was confirmed as the small intestine was reduced from the left groin after direct pressure over the inguinal area was placed by the visitor services assistant. Next, the left groin defect was measured 3 x 3-cm hernia with the sac extending to the scrotum. A large direct hernia was confirmed, Nyhus ty pe III. The left inguinal hernia sac was evaginated whereby the peritoneum was scored using Endo scissors with cautery. As the hernia sac extended into the groin, partial resection of the sac was done. The peritoneal sac of the hernia was stripped. The sac was resected and then passed off for further pathological analysis. The size of the hernia defect was 3 cm x 3 cm with intraoperative films obtained. Using a nonabsorbable 2-0 VLOC, the peritoneal defect of the left inguinal hernia site was closed using a pursestring suture. The defect was found to be completely closed with complete reduction of the left direct inguinal hernia was confirmed. As an onlay, an 11.[address] mesh by [employer] was cut in half and entered into the abdominal cavity via the 8 mm trocar. The mesh was tacked to the pelvis using 2-0 nonabsorbable VLOC 9-inch length sutures. A final endoscopic imaging was obtained. The robot was undocked from the patient's bedside. I then rescrubbed into the case. Insufflation was released from the abdominal cavity and all instruments were removed from the abdominal cavity. Pressure was applied along the left groin. The rest of incisions were reapproximated using 4-0 Monocryl in a running subcuticular fashion. Local anesthetic was placed along the incision including for a bilateral groin block. Incisions were cleansed using dilute hydrogen peroxide. Liquid glue was applied to the skin. At the end of the procedure, the needle, sponge and instrument counts had been verified correct by the surgical services manager. The patient had tolerated the procedure well and was taken to the postanesthesia care unit in stable condition.
--- NOTE | 2020-06-12 13:51 | CDI ---
Documentation Clarification Form Hypertension related to pain,uncontrolled Date: 06/12/20 From: Ruchi Herrera Phone: If you have a question about this query, please contact Muna Lemus, Digging Machine Operator at [phone] between 8am and 5pm. Admit Date: 06/06/20 Discharge Date:06/11/20 Patient Name: Flori Stafford Visit Number: [id number] ATTENTION: The Clinical Documentation Specialists (CDI) and [facility] Coding Staff appreciate your assistance in clarifying documentation. Please respond to the clarification below the line at the bottom and electronically sign. The CDI & [facility] Coding staff will review the response and follow-up if needed. Please note: Queries are made part of the Legal Health Record. If you have any questions, please contact the author of this message via ITS. Dear Dr. Ruby The patient presented with the following incarcerated inguinal hernia with small bowel obstruction and atypical chest pain. Documentation in the discharge summary states "patient being discharged with the medications for uncontrolled hypertension". History/Risk Factors: Hypertensive cardiovascular disease, BPH Clinical Indicators: Elevated blood pressure Blood Pressure: 06/06: 146/98; 06/07: 157/100, 166/102, 157/101, 144/91; 06/08 - 149/94, 146/96, 154/79, 155/96 Treatment: Lisinopril 10 mg initiated and sent home on Lisinopril 20 mg PO daily Consults: In your professional opinion, can you please clarify the uncontrolled hypertension? Emergency Urgency Crisis Other, please specify Unable to determine MTDD
--- NOTE | 2020-06-18 12:11 | CDI ---
Documentation Clarification Form Pl refer to washing machine striper. Date: 06/18/20 From: Ruchi Herrera Phone: If you have a question about this query, please contact Muna Lemus, Process Design Engineer at [phone] between 8am and 5pm. Admit Date: 06/08/20 Discharge Date:06/11/20 Patient Name: Flori Stafford Visit Number: [id number] ATTENTION: The Clinical Documentation Specialists (CDI) and [facility] Coding Staff appreciate your assistance in clarifying documentation. Please respond to the clarification below the line at the bottom and electronically sign. The CDI & [facility] Coding staff will review the response and follow-up if needed. Please note: Queries are made part of the Legal Health Record. If you have any questions, please contact the author of this message via ITS. Dear Dr. Ruby Thank you for signing the previous query. Please document a response before signing this query. The patient presented with the following incarcerated inguinal hernia with small bowel obstruction and atypical chest pain. Documentation in the discharge summary states "patient being discharged with the medications for uncontrolled hypertension". History/Risk Factors: Hypertensive cardiovascular disease, BPH Clinical Indicators: Elevated blood pressure Blood Pressure: 06/06: 146/98; 06/07: 157/100, 166/102, 157/101, 144/91; 06/08 - 149/94, 146/96, 154/79, 155/96 Treatment: Lisinopril 10 mg initiated and sent home on Lisinopril 20 mg PO daily Consults: In your professional opinion, can you please clarify the uncontrolled hypertension? Emergency Urgency Crisis Other, please specify Unable to determine MTDD
--- NOTE | 2020-06-25 11:53 | CDI ---
Documentation Clarification Form Date: 06/25/20 From: Ruchi Herrera Phone: If you have a question about this query, please contact Muna Lemus Blindstitch Machine Operator at [phone] between 8am and 5pm. Admit Date: 06/08/20 Discharge Date:06/11/20 Patient Name: Flori Stafford Visit Number: [id number] ATTENTION: The Clinical Documentation Specialists (CDI) and [facility] Coding Staff appreciate your assistance in clarifying documentation. Please respond to the clarification below the line at the bottom and electronically sign. The CDI & [facility] Coding staff will review the response and follow-up if needed. Please note: Queries are made part of the Legal Health Record. If you have any questions, please contact the author of this message via ITS. Dear Dr. Alarcon The patient presented with the following incarcerated inguinal hernia with small bowel obstruction and atypical chest pain. Documentation in the discharge summary states "patient being discharged with the medications for uncontrolled hypertension". History/Risk Factors: Hypertensive cardiovascular disease, BPH Clinical Indicators: Elevated blood pressure Blood Pressure: 06/06: 146/98; 06/07: 157/100, 166/102, 157/101, 144/91; 06/08 - 149/94, 146/96, 154/79, 155/96 Treatment: Lisinopril 10 mg initiated and sent home on Lisinopril 20 mg PO daily Consults: In your professional opinion, can you please clarify the uncontrolled hypertension? Emergency Urgency Crisis Other, please specify Unable to determine The patient presents with newly diagnosed essential hypertension. None of the above diagnoses emergency, urgency, or crisis qualifies. KM 06/25/20 19:35 MTDD
== END 2020-06-11 16:42 | disposition home or self-care (01) | DRG 351 ==
LOC: EC 22:04 → 1SOBS 06-07 00:35 → OBSVTOIN 06-08 07:14
PROVIDERS: ADMIT Surgery Plastic and Reconstructive Surgery; ATTEND Surgery Plastic and Reconstructive Surgery
PROC: 0YU64JZ Supplement Left Inguinal Region with Synthetic Substitute, Percutaneous Endoscopic Approach (ICD-10-PCS; principal; 2020-06-09 08:30)
PROC: 8E0W4CZ Robotic Assisted Procedure of Trunk Region, Percutaneous Endoscopic Approach (ICD-10-PCS; principal; 2020-06-09 08:30)
DX: K40.30 Unilateral inguinal hernia, with obstruction, without gangrene, not specified as recurrent (principal); N13.8 Other obstructive and reflux uropathy; D50.9 Iron deficiency anemia, unspecified; E86.0 Dehydration; G43.909 Migraine, unspecified, not intractable, without status migrainosus; I11.9 Hypertensive heart disease without heart failure; I44.0 Atrioventricular block, first degree; K05.219 Aggressive periodontitis, localized, unspecified severity; N40.1 Benign prostatic hyperplasia with lower urinary tract symptoms; R31.0 Gross hematuria; R33.8 Other retention of urine; R07.89 Other chest pain; N28.1 Cyst of kidney, acquired; R09.81 Nasal congestion; Z02.89 Encounter for other administrative examinations; Z79.899 Other long term (current) drug therapy; Z87.891 Personal history of nicotine dependence; Z87.19 Personal history of other diseases of the digestive system; Z98.890 Other specified postprocedural states; Z82.49 Family history of ischemic heart disease and other diseases of the circulatory system
CPT/HCPCS: 36415; 51798; 64488; 70450; 70486; 74177; 80048; 80053; 80061; 80320; 81003; 82150; 82550; 82728; 83540; 83550; 83605; 83690; 83735; 84100; 84484; 85025; 85610; 85730; 88302; 93306; 93351; 96360; 99291

== ENCOUNTER 2020-06-14 12:34 | Emergency (ER) | payer OTHER ==
[2020-06-14 12:40] VITALS: RESP 18; TEMP 98.1
[2020-06-14] MEDS ORDERED: KETOROLAC 15 MG/ML 1 ML VIAL IM STA (14:16)
--- NOTE | 2020-06-14 14:16 | US ---
EXAMINATION TYPE: US venous doppler duplex UE LT DATE OF EXAM: 06/14/2020 COMPARISON: NONE CLINICAL HISTORY: 59-year-old male with pain, SVT. Pain and edema left lower arm. Recent IV left arm SIDE PERFORMED: left FINDINGS: Grayscale, color doppler, spectral doppler imaging performed of the deep veins of the upper extremiti es. There is normal flow, compressibility and vascular waveforms in the deep vasculature. Left Arm: No evidence of DVT. Thrombus noted left superficial vein lower arm IMPRESSION: 1. Exam positive for SVT in the lower arm. 2. No evidence for DVT within the left upper extremity.
--- NOTE | 2020-06-14 14:17 | ED ---
General Adult HPI - General Chief complaint: Extremity Problem,Nontraumatic Stated complaint: arm swelling-revisit Time Seen by Provider: 06/14/20 12:57 Source: patient, RN notes reviewed, old records reviewed Mode of arrival: wheelchair Limitations: no limitations - History of Present Illness Initial comments: 59-year-old male patient with the ED for evaluation of visual thrombophlebitis. Patient reports that he had an IV there about 3 days ago. Has been having pain and palpable cord in his left forearm region since. Denies any other complaints. Patient did have inguinal repair surgery 5 days ago and has been doing well since reports he has some mild generalized soreness of his abdomen. Denies any chest pain or shortness of breath. Systemic: Pt denies fatigue, fever/chills, rash. Pt denies weakness, night sweats, weight loss. Neuro: Pt denies headache, visual disturbances, syncope or pre-syncope. HEENT: Pt denies ocular discharge or irritation, otalgia, rhinorrhea, pharyngitis or notable lymphadenopathy. Cardiopulmonary: Pt denies chest pain, SOB, heart palpitations, dyspnea on exertion. Abdominal/GI: Pt denies n/v/d. : Pt denies dysuria, burning w/ urination, frequency/urgency. Denies new onset urinary or bowel incontinence. MSK: Pt denies myalgia, loss of strength or function in extremities. Neuro: Pt denies new onset weakness, paresthesias. - Related Data Previous Rx's Medication Instructions Recorded Acetaminophen Tab [Tylenol Tab] 650 mg PO Q4H PRN #30 tablet 06/11/20 Amoxic-Pot Clav 875-125Mg 1 tab PO BID 6 Days #12 tab 06/11/20 [Augmentin 875-125] Tamsulosin [Flomax] 0.4 mg PO DAILY #30 cap 06/11/20 lisinopriL 20 mg PO DAILY #30 tab 06/11/20 Allergies Allergy/AdvReac Type Severity Reaction Status Date / Time No Known Allergies Allergy Verified 06/14/20 12:40 Review of Systems ROS Statement: Those systems with pertinent positive or pertinent negative responses have been documented in the HPI. ROS Other: All systems not noted in ROS Statement are negative. Past Medical History Past Medical History: Prostate Disorder History of Any Multi-Drug Resistant Organisms: None Reported Past Surgical History: Hernia Repair Past Psychological History: No Psychological Hx Reported Smoking Status: Former smoker Past Alcohol Use History: None Reported Past Drug Use History: Marijuana General Exam - General Exam Comments Initial Comments: Constitutional: NAD, AOX3, Pt has pleasant affect. HEENT: NC/AT, trachea midline, neck supple, no lymphadenopathy. External ears appear normal, without discharge. Mucous membranes moist. Eyes PERRLA, EOM intact. There is no scleral icterus. No pallor noted. Cardiopulmonary: RRR, no murmurs, rubs or gallops, no JVD noted. Lungs CTAB in anterior and posterior hanson. No peripheral edema. Abdominal exam: Abdomen soft and non-distended. Incision sites clean and dry without signs of infection or discharge. Very mild generalized tenderness. Bowel sounds active in LLQ. No hepatosplenomegaly. No ecchymosis Neuro: CN II-XII grossly intact. No nuchal rigidity. No raccon eyes, no acharya sign, no hemotympanum. No cervical spinal tenderness. MSK: palpable cord left forearm region. No cellulitis warmth or erythema. No posterior calf tenderness bilaterally, homans sign negative bilaterally. Posterior tibialis and radial pulse +2 bilaterally. Sensation intact in upper and lower extremities. Full active ROM in upper and lower extremities, 5/5 stregnth. Limitations: no limitations Course Vital Signs 06/14/20 06/14/20 12:36 14:34 Temperature 98.1 F 98.1 F Pulse Rate 105 H 80 Respiratory 18 18 Rate Blood Pressure 140/98 146/92 O2 Sat by Pulse 98 98 Oximetry Medical Decision Making - Medical Decision Making 59-year-old female patient presents to ED for evaluation of superficial thrombophlebitis where he had a IV inserted Has been ongoing for about 3 days. Denies any chest pain or shortness of breath. Patient is up with a distress some general abdominal soreness. He did recently have a hernia repair. Incision sites are clean and dry. Ultrasound confirmed Superficial thrombophlebitis. patient will be treated with nonsteroidal anti- inflammatories, compression, elevation outpatient follow up and return to ED with any worsening symptoms. Case discussed with Dr. Gonzalez. Disposition Clinical Impression: Superficial thrombophlebitis Disposition: HOME SELF-CARE Condition: Stable Instructions (If sedation given, give patient instructions): Superficial Thrombophlebitis (ED) Additional Instructions: rest and elevate the area. You may use an Luis wrap for compression. Use ibuprofen for discomfort. Return to ER if any worsening symptoms. Follow up with primary care provider in 1-2 days. Is patient prescribed a controlled substance at d/c from ED?: No Referrals: None,Stated [Primary Care Provider] - 1-2 days Mauricio Mojica [STAFF PHYSICIAN] - 1-2 days
[2020-06-14 14:35] VITALS: BP 146/92; PULSE 80
== END 2020-06-14 15:08 | disposition home or self-care (01) ==
LOC: EC 12:34
DX: I80.8 Phlebitis and thrombophlebitis of other sites (principal); R10.9 Unspecified abdominal pain; Z87.891 Personal history of nicotine dependence; Z98.890 Other specified postprocedural states
CPT/HCPCS: 93971; 99284; 96372; J1885